=== PATIENT | female | born 1995 | race Caucasian/White ===

== ENCOUNTER → 2016-07-01 | Outpatient (REF) | payer OTHER, MEDICAID ==
[~2016-07-01] MED LIST: IBUP60TA PO; LORT5TAB PO; ORTH1TAB4 PO
== END ==
LOC: M LAB REF 11:55
PROVIDERS: ATTEND Physician Assistant Medical
DX: N39.0 Urinary tract infection, site not specified (principal)

== ENCOUNTER → 2016-07-03 | Outpatient (REF) | payer OTHER, MEDICAID | LOC: M SFHCWAGY 15:19 | PROVIDERS: ATTEND Nurse Practitioner Family | DX: Z11.3 Encounter for screening for infections with a predominantly sexual mode of transmission (principal) ==

== ENCOUNTER → 2017-02-04 | Outpatient (CLI) | payer OTHER ==
--- NOTE | 2017-02-04 16:02 | REP ---
CERVICAL SPINE, SEVEN VIEWS: HISTORY: Cervicalgia. There is no acute fracture or subluxation. The intervertebral discs are normal in height. The neural foramina are patent. IMPRESSION: There is no acute fracture or subluxation. Signed by Raza Benitez MD 02/04/2017 04:02 P
== END ==
LOC: M WUC 12:23
PROVIDERS: ATTEND Physician Assistant
DX: M54.2 Cervicalgia (principal)

== ENCOUNTER → 2017-03-25 | Outpatient (CLI) | payer OTHER, MEDICAID ==
[2017-03-25 19:43] LABS: ALBUMIN 4.5 GM/DL (3.2-5.2); ALKALINE PHOSPHATASE 43 U/L (45-117); ALT/SGPT 17 U/L (12-78); ANION GAP 8 MEQ/L (8-16); AST/SGOT 7 U/L (7-37); BILIRUBIN,TOTAL 0.4 MG/DL (0.2-1.0); BLOOD UREA NITROGEN 15 MG/DL (7-18); CALCIUM LEVEL 9.4 MG/DL (8.5-10.1); CARBON DIOXIDE LEVEL 26 MEQ/L (21-32); CHLORIDE LEVEL 108 MEQ/L (98-107); CREATININE FOR GFR 0.84 MG/DL (0.55-1.02); FREE T4 0.93 NG/DL (0.76-1.46); GLOMERULAR FILTRATION RATE > 60.0 (>60); GLUCOSE, FASTING 94 MG/DL (70-105); PERCENT SATURATION 22.3 % (13.2-45.0); POTASSIUM SERUM 4.2 MEQ/L (3.5-5.1); SODIUM LEVEL 142 MEQ/L (136-145); TOTAL IRON BINDING CAPACITY 323 UG/DL (250-450); TOTAL PROTEIN 7.5 GM/DL (6.4-8.2)
[2017-03-25 19:49] LABS: BASO # 0.1 10^3/uL (0.0-0.2); BASO % 0.6 % (0.0-1.0); EOS # 0.3 10^3/uL (0.0-0.50); EOS % 3.8 % (0.0-3.0); IMMATURE GRANULOCYTE % 0.1 % (0-0); LYMPH # 2.5 10^3/uL (1.5-6.5); LYMPH % 31.7 % (24.0-44.0); MEAN CORPUSCULAR HEMOGLOBIN 30.4 pg (27.0-33.0); MEAN CORPUSCULAR VOLUME 91.9 fl (80.0-96.0); MONO # 0.6 10^3/uL (0.0-0.8); MONO % 7.7 % (0.0-5.0); NEUTROPHILS # 4.4 10^3/uL (1.8-7.7); NEUTROPHILS % 56.1 % (36.0-66.0); PLATELET COUNT, AUTOMATED 317 10^3/uL (150-450); RED CELL DISTRIBUTION WIDTH 12.6 % (11.5-14.5); WHITE BLOOD COUNT 7.9 10^3/uL (4.0-10.0)
[2017-03-29 00:06] LABS: VITAMIN D 1,25 DIHYDROXY 36.5 pg/mL (19.9-79.3)
== END ==
LOC: M WUC 13:15
PROVIDERS: ATTEND Physician Assistant
DX: M79.1 Myalgia (principal); R31.9 Hematuria, unspecified

== ENCOUNTER → 2017-06-11 | Outpatient (CLI) | payer BC, OTHER, MEDICAID | LOC: M WHC 14:09 | DX: N64.4 Mastodynia (principal) | CPT/HCPCS: 76642 ==

== ENCOUNTER → 2017-07-09 | Outpatient (REF) | payer OTHER | LOC: M LAB REF 12:29 | DX: J02.9 Acute pharyngitis, unspecified (principal) ==

== ENCOUNTER → 2017-08-11 | Outpatient (REF) | payer OTHER, MEDICAID | LOC: M SFHCWAGY 10:16 | DX: Z12.4 Encounter for screening for malignant neoplasm of cervix (principal) | CPT/HCPCS: G0123 ==

== ENCOUNTER → 2018-01-02 | Outpatient (CLI) | payer OTHER, MEDICAID ==
[2018-01-02 19:15] LABS: BASO # 0.1 10^3/uL (0.0-0.2); BASO % 0.8 % (0.0-1.0); EOS # 0.4 10^3/uL (0.0-0.50); IMMATURE GRANULOCYTE % 0.2 % (0-3.0); LYMPH # 3.1 10^3/uL (1.5-6.5); LYMPH % 37.1 % (24.0-44.0); MEAN CORPUSCULAR HEMOGLOBIN 30.3 pg (27.0-33.0); MEAN CORPUSCULAR HGB CONC 34.1 g/dl (32.0-36.5); MEAN CORPUSCULAR VOLUME 88.7 fl (80.0-96.0); MONO # 0.6 10^3/uL (0.0-0.8); MONO % 6.9 % (0.0-5.0); NEUTROPHILS # 4.2 10^3/uL (1.8-7.7); PLATELET COUNT, AUTOMATED 295 10^3/uL (150-450); RED BLOOD COUNT 4.62 10^6/uL (4.00-5.40); RED CELL DISTRIBUTION WIDTH 12.4 % (11.5-14.5); WHITE BLOOD COUNT 8.4 10^3/uL (4.0-10.0)
[2018-01-02 19:30] LABS: ALBUMIN 4.1 GM/DL (3.2-5.2); ALBUMIN/GLOBULIN RATIO 1.28 (1.00-1.93); ALKALINE PHOSPHATASE 48 U/L (45-117); ALT/SGPT 18 U/L (12-78); AMYLASE 72 U/L (25-115); ANION GAP 7 MEQ/L (8-16); AST/SGOT 11 U/L (7-37); BILIRUBIN,TOTAL 0.3 MG/DL (0.2-1.0); BLOOD UREA NITROGEN 15 MG/DL (7-18); CALCIUM LEVEL 8.8 MG/DL (8.5-10.1); CARBON DIOXIDE LEVEL 27 MEQ/L (21-32); CHLORIDE LEVEL 108 MEQ/L (98-107); CREATININE FOR GFR 1.12 MG/DL (0.55-1.30); GLOMERULAR FILTRATION RATE > 60.0 (>60); GLUCOSE, FASTING 92 MG/DL (70-100); LIPASE 275 U/L (73-393); POTASSIUM SERUM 3.8 MEQ/L (3.5-5.1); SODIUM LEVEL 142 MEQ/L (136-145); TOTAL PROTEIN 7.3 GM/DL (6.4-8.2)
== END ==
LOC: M ADAMS 17:02
DX: R10.9 Unspecified abdominal pain (principal)
CPT/HCPCS: 82150

== ENCOUNTER → 2018-02-18 | Outpatient (REF) | payer OTHER ==
[2018-02-18 18:56] LABS: FREE T4 0.93 NG/DL (0.76-1.46)
== END ==
LOC: M SFHCWAGY 15:58
DX: R23.2 Flushing (principal); F41.9 Anxiety disorder, unspecified
CPT/HCPCS: 84443

== ENCOUNTER → 2018-03-03 | Outpatient (CLI) | payer BC, OTHER | LOC: M WUC 17:40 | DX: M25.512 Pain in left shoulder (principal) | CPT/HCPCS: 73030 ==

== ENCOUNTER → 2018-03-03 | Outpatient (REF) | payer OTHER | LOC: M LAB REF 19:25 | DX: R10.9 Unspecified abdominal pain (principal) ==

== ENCOUNTER → 2018-05-15 | Outpatient (REF) | payer OTHER ==
[~2018-05-15] MED LIST changes: +ORTH1TAB10 PO; -ORTH1TAB4 PO
[2018-05-15 12:18] LABS: BASO # 0.1 10^3/uL (0.0-0.2); BASO % 0.8 % (0.0-1.0); EOS # 0.2 10^3/uL (0.0-0.50); EOS % 3.9 % (0.0-3.0); HEMATOCRIT 44.7 % (36.0-47.0); HEMOGLOBIN 14.9 g/dl (12.0-15.5); LYMPH % 32.5 % (24.0-44.0); MEAN CORPUSCULAR HEMOGLOBIN 30.5 pg (27.0-33.0); MEAN CORPUSCULAR HGB CONC 33.3 g/dl (32.0-36.5); MEAN CORPUSCULAR VOLUME 91.4 fl (80.0-96.0); MONO # 0.5 10^3/uL (0.0-0.8); MONO % 7.9 % (0.0-5.0); NEUTROPHILS # 3.4 10^3/uL (1.8-7.7); NEUTROPHILS % 54.4 % (36.0-66.0); PLATELET COUNT, AUTOMATED 284 10^3/uL (150-450); RED BLOOD COUNT 4.89 10^6/uL (4.00-5.40); WHITE BLOOD COUNT 6.2 10^3/uL (4.0-10.0)
[2018-05-15 12:28] LABS: ALT/SGPT 16 U/L (12-78); AMYLASE 64 U/L (25-115); BILIRUBIN,TOTAL 0.6 MG/DL (0.2-1.0); BLOOD UREA NITROGEN 13 MG/DL (7-18); CALCIUM LEVEL 9.2 MG/DL (8.5-10.1); CARBON DIOXIDE LEVEL 27 MEQ/L (21-32); CHLORIDE LEVEL 105 MEQ/L (98-107); CHOLESTEROL LEVEL 136 MG/DL (<200); CHOLESTEROL RISK RATIO 3.022 (<5); GLOMERULAR FILTRATION RATE > 60.0 (>60); GLUCOSE, FASTING 87 MG/DL (70-100); HDL CHOLESTEROL 45 MG/DL (>40); LDL CHOLESTEROL 78 MG/DL (<100); LIPASE 241 U/L (73-393); NON-HDL-C 91 MG/DL; POTASSIUM SERUM 4.3 MEQ/L (3.5-5.1); SODIUM LEVEL 141 MEQ/L (136-145); TOTAL PROTEIN 7.2 GM/DL (6.4-8.2); TRIGLYCERIDES LEVEL 66 MG/DL (<150)
== END ==
LOC: M SFHCPLAZ 07:33
PROVIDERS: ATTEND Physician Assistant Medical
DX: Z13.220 Encounter for screening for lipoid disorders (principal); R10.31 Right lower quadrant pain

== ENCOUNTER → 2018-05-21 | Outpatient (CLI) | payer BC ==
--- NOTE | 2018-05-22 05:08 | REP ---
Clinical: Right-sided abdominal pain. Technique: Real time graham scale ultrasound examination using curved array transducer. Findings: Liver and pancreas are normal in contour, size, echogenicity without focal hepatic or pancreatic lesions identified. The gallbladder is normal and without gallstones, wall thickening, or pericholecystic fluid. No biliary ductal dilatation is appreciated and the common bile duct measures 2.5 mm diameter. Right kidney is normal in reniform shape without hydronephrosis and measures 10.8 x 4.7 x 3.5 cm. Impression: Normal abdominal ultrasound
== END ==
LOC: M WHC 08:39
PROVIDERS: ATTEND Physician Assistant Medical
DX: R10.31 Right lower quadrant pain (principal)

== ENCOUNTER 2018-08-20 15:34 | Outpatient (RCR) | payer BC, OTHER ==
[~2018-08-20 15:34] MED LIST changes: +IBUP600T42 PO; -IBUP60TA PO
== END 2018-09-08 ==
LOC: M PT 15:34
PROVIDERS: ATTEND Orthopaedic Surgery
DX: M25.561 Pain in right knee (principal)

== ENCOUNTER 2019-02-06 16:11 | Emergency (ER) | payer BC, OTHER ==
[~2019-02-06] VITALS: Ht 160 cm; Wt 63.6 kg
[2019-02-06 17:26] LABS: BASO # 0.1 10^3/uL (0.0-0.2); BASO % 0.9 % (0.0-1.0); EOS # 0.4 10^3/uL (0.0-0.5); EOS % 6.2 % (0.0-3.0); HEMATOCRIT 41.3 % (36.0-47.0); HEMOGLOBIN 13.8 g/dl (12.0-15.5); LYMPH # 2.2 10^3/uL (1.5-5.0); LYMPH % 32.6 % (24.0-44.0); MEAN CORPUSCULAR HEMOGLOBIN 31.3 pg (27.0-33.0); MEAN CORPUSCULAR HGB CONC 33.4 g/dl (32.0-36.5); MEAN CORPUSCULAR VOLUME 93.7 fl (80.0-96.0); MONO # 0.7 10^3/uL (0.0-0.8); MONO % 9.7 % (0.0-5.0); NEUTROPHILS # 3.5 10^3/uL (1.5-8.5); NEUTROPHILS % 50.5 % (36.0-66.0); PLATELET COUNT, AUTOMATED 265 10^3/uL (150-450); RED BLOOD COUNT 4.41 10^6/uL (4.00-5.40); WHITE BLOOD COUNT 6.8 10^3/uL (4.0-10.0)
[2019-02-06 17:48] LABS: ERYTHROCYTE SEDIMENTATION RATE 4 mm/hr (0-20)
[2019-02-06 17:50] LABS: BLOOD UREA NITROGEN 13 MG/DL (7-18); C REACTIVE PROTEIN QUANTITATIV < 0.30 MG/DL (0.00-0.30); CALCIUM LEVEL 8.4 MG/DL (8.5-10.1); CARBON DIOXIDE LEVEL 30 MEQ/L (21-32); CHLORIDE LEVEL 109 MEQ/L (98-107); CREATININE FOR GFR 0.69 MG/DL (0.55-1.30); GLOMERULAR FILTRATION RATE > 60.0 (>60); GLUCOSE, FASTING 88 MG/DL (70-100); POTASSIUM SERUM 4.5 MEQ/L (3.5-5.1); SODIUM LEVEL 141 MEQ/L (136-145)
[2019-02-06] MEDS ORDERED: ISOVUE-370 76% 100ML VIAL (Q9967) As Ordered ONE (18:28)
[2019-02-06] MEDS ORDERED: NS 1,000 ML IV ONE (18:30)
--- NOTE | 2019-02-06 19:38 | ECGEPIP ---
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 Order Number: [id number] Reading MD: Sybil Altamirano Measurements Intervals [place] Rate: 76 P: 51 MN: 146 QRS: 21 QRSD: 103 T: 55 QT: 378 QTc: 425 Interpretive Statements SINUS RHYTHM NO PRIOR ECG FOR COMPARISON Electronically Signed on 02-06-2019 19:37:58 EDT by Sybil Altamirano
[2019-02-06 20:37] VITALS: BP 110/65
[2019-02-06] MEDS ORDERED: PEPC1TAB5 PO (21:06)
[2019-02-06] MEDS ORDERED: ROBA750T4 PO (21:06)
[2019-02-06] MEDS ORDERED: FAMOTIDINE 20 MG TAB PO ONE (21:15)
[2019-02-06] MEDS ORDERED: METHOCARBAMOL 500 MG TAB PO ONE (21:15)
--- NOTE | 2019-02-07 08:43 | REP ---
CHEST PA AND LATERAL: 02/06/2019. Clinical history: Dyspnea. Findings: Two-view show the lung gaston well inflated. There is no pleural effusion, lateral pleural thickening, apical scarring or pneumothorax. The heart, mediastinal and hilar contours are normal. Aorta and airway intact. Bony thorax shows no focal lesion. Impression: 1. No acute cardiopulmonary disease. Electronically Signed by Aakash Guzmán MD 02/07/2019 10:42 A
--- NOTE | 2019-02-08 08:05 | REPVR ---
PROCEDURE INFORMATION: Exam: CT Angiography Chest With Contrast Exam date and time: 02/06/2019 6:35 PM Clinical history: 23 years old, female; Shortness of breath; Left-sided chest pain; Additional info: Chest pain, left with SOB TECHNIQUE: Imaging protocol: Computed tomographic angiography of the chest with intravenous contrast. 3D rendering: MIP reconstructed images were created and reviewed. Radiation optimization: All CT scans at this facility use at least one of these dose optimization techniques: automated exposure control; mA and/or kV adjustment per patient size (includes targeted exams where dose is matched to clinical indication); or iterative reconstruction. Contrast material: ISOVUE 370; Contrast volume: 75 ml; Contrast route: IV; COMPARISON: CR Chest, 2 view PA, Lat 02/06/2019 5:43 PM FINDINGS: Pulmonary arteries: No filling defects in the pulmonary arteries to suggest pulmonary emboli. Aorta: Unremarkable. No aortic aneurysm. No aortic dissection. Other arteries: Left vertebral artery arises from the aortic arch, a normal variant. Lungs: Unremarkable. No consolidation. No masses. Pleural space: Unremarkable. No pneumothorax. No pleural effusion. Heart: Unremarkable. No cardiomegaly. No pericardial effusion. Liver: 1 cm liver cyst. Lymph nodes: Unremarkable. No enlarged lymph nodes. Bones/joints: Unremarkable. No acute fracture. Soft tissues: Unremarkable. IMPRESSION: No filling defects in the pulmonary arteries to suggest pulmonary emboli. Electronically signed by: Jacobo Gutiérrez On 02/06/2019 19:28:46 PM
== END 2019-02-06 21:20 | disposition home or self-care (01) ==
LOC: M ED 16:11
DX: R07.89 Other chest pain (principal); M62.838 Other muscle spasm
CPT/HCPCS: 71046; 71275; 80048; 84702; 85025; 85379; 85652; 86140; 93005; 96360; 99284; Q9967

== ENCOUNTER → 2019-03-29 | Outpatient (CLI) | payer BC, OTHER ==
[~2019-03-29] MED LIST changes: +PEPC1TAB5 PO; +ROBA750T4 PO
[2019-03-29 13:59] LABS: BASO # 0.1 10^3/uL (0.0-0.2); BASO % 0.6 % (0.0-1.0); EOS # 0.2 10^3/uL (0.0-0.5); EOS % 2.4 % (0.0-3.0); HEMATOCRIT 41.8 % (36.0-47.0); HEMOGLOBIN 13.8 g/dl (12.0-15.5); LYMPH # 1.6 10^3/uL (1.5-5.0); LYMPH % 19.3 % (24.0-44.0); MEAN CORPUSCULAR HEMOGLOBIN 30.3 pg (27.0-33.0); MEAN CORPUSCULAR VOLUME 91.7 fl (80.0-96.0); MONO # 0.8 10^3/uL (0.0-0.8); MONO % 9.2 % (0.0-5.0); NEUTROPHILS # 5.6 10^3/uL (1.5-8.5); NEUTROPHILS % 68.3 % (36.0-66.0); PLATELET COUNT, AUTOMATED 280 10^3/uL (150-450); RED BLOOD COUNT 4.56 10^6/uL (4.00-5.40); WHITE BLOOD COUNT 8.3 10^3/uL (4.0-10.0)
[2019-03-29 14:55] LABS: HIV 1&2 SCREEN CENTAUR NEGATIVE (NEGATIVE); RUBELLA IgG QUALITATIVE IMMUNE (IMMUNE)
[2019-03-29 15:54] LABS: CHLAMYDIA DNA AMPLIFICATION NEGATIVE (NEGATIVE); GC DNA AMPLIFICATION NEGATIVE (NEGATIVE)
== END ==
LOC: M SMT 10:17
PROVIDERS: ATTEND Advanced Practice Midwife
DX: Z34.81 Encounter for supervision of other normal pregnancy, first trimester (principal)

== ENCOUNTER 2019-05-05 11:24 | Emergency (ER) | payer BC, OTHER ==
[~2019-05-05] VITALS: Ht 162.6 cm; Wt 62.9 kg
[2019-05-05] MEDS ORDERED: ACETAMINOPHEN TAB 650MG DOSE (2X325MG) PO ONE (12:30)
[2019-05-05 12:55] LABS: AMORPHOUS SEDIMENT SMALL (NEGATIVE); APPEARANCE, URINE CLEAR (CLEAR); BACTERIA, URINE AUTO NEGATIVE (NEGATIVE); BILIRUBIN, URINE AUTO NEGATIVE (NEGATIVE); BLOOD, URINE BLOOD NEGATIVE (NEGATIVE); COLOR, URINE YELLOW (YELLOW); GLUCOSE, URINE (UA) AUTO NEGATIVE (NEGATIVE); KETONE, URINE AUTO 1+ mg/dL (NEGATIVE); LEUKOCYTE ESTERASE, URINE AUTO NEGATIVE (NEGATIVE); MUCUS, URINE SMALL (NEGATIVE); NITRITE, URINE AUTO NEGATIVE (NEGATIVE); PROTEIN, URINE AUTO NEGATIVE (NEGATIVE); RBC, URINE AUTO 0 /HPF (0-3); SPECIFIC GRAVITY URINE AUTO 1.027 (1.002-1.035); SQUAMOUS EPITHELIAL CELL UR AU 2 /HPF (0-6); UROBILINOGEN, URINE AUTO 0.2 mg/dL (0.0-2.0); WBC, URINE AUTO 0 /HPF (0-3)
--- NOTE | 2019-05-05 13:15 | REP ---
Clinical: with right lower quadrant pain Comparison: None . Findings: Examination demonstrates a single live intrauterine in breech presentation. motion is identified by technologist. Placenta is noted posterior and grade zero without evidence for placenta previa or abruption. Amniotic fluid volume is normal. Cervix measures 3.1 cm in length and appears closed. No evidence for nuchal cord. Gestational age by LMP 14 weeks 6 days with DEBBIE 10/28/2019 . Gestational age by current measurements 14 weeks 6 days with DEBBIE 10/28/2019 . FHR equals 150 beats per minute. Estimated weight 113 grams ( 47th percentile). Anatomical assessment demonstrates normal structures including cranium, choroid plexus, cavum, cerebellum/posterior fossa, facial features, diaphragm, stomach, kidneys/bladder, spine, and extremities. Impression: Single live intrauterine in breech presentation. No gross abnormalities are identified. Complete anatomical assessment should be performed at 19-20 weeks. Electronically Signed by Los Johnson MD 05/05/2019 01:07 P
[2019-05-05 13:33] LABS: BASO % 0.4 % (0.0-1.0); EOS # 0.2 10^3/uL (0.0-0.5); EOS % 1.7 % (0.0-3.0); HEMOGLOBIN 12.9 g/dl (12.0-15.5); LYMPH # 1.7 10^3/uL (1.5-5.0); LYMPH % 16.9 % (24.0-44.0); MEAN CORPUSCULAR HEMOGLOBIN 30.4 pg (27.0-33.0); MEAN CORPUSCULAR HGB CONC 33.1 g/dl (32.0-36.5); MEAN CORPUSCULAR VOLUME 91.8 fl (80.0-96.0); MONO # 0.6 10^3/uL (0.0-0.8); MONO % 5.7 % (0.0-5.0); NEUTROPHILS # 7.3 10^3/uL (1.5-8.5); NEUTROPHILS % 74.9 % (36.0-66.0); PLATELET COUNT, AUTOMATED 234 10^3/uL (150-450); RED BLOOD COUNT 4.25 10^6/uL (4.00-5.40); WHITE BLOOD COUNT 9.8 10^3/uL (4.0-10.0)
[2019-05-05 13:40] LABS: BLOOD UREA NITROGEN 9 MG/DL (7-18); C REACTIVE PROTEIN QUANTITATIV 0.38 MG/DL (0.00-0.30); CALCIUM LEVEL 8.9 MG/DL (8.5-10.1); CARBON DIOXIDE LEVEL 24 MEQ/L (21-32); CHLORIDE LEVEL 104 MEQ/L (98-107); CREATININE FOR GFR 0.54 MG/DL (0.55-1.30); GLOMERULAR FILTRATION RATE > 60.0 (>60); GLUCOSE, FASTING 74 MG/DL (70-100); HCG, SERUM QUANTITATIVE 26232 MIU/ML; POTASSIUM SERUM 4.8 MEQ/L (3.5-5.1); SODIUM LEVEL 136 MEQ/L (136-145)
[2019-05-05 14:44] VITALS: BP 114/69
[2019-05-05 15:06] LABS: CHLAMYDIA DNA AMPLIFICATION NEGATIVE (NEGATIVE); GC DNA AMPLIFICATION NEGATIVE (NEGATIVE)
== END 2019-05-05 15:11 | disposition home or self-care (01) ==
LOC: M ED 11:24
DX: O26.892 Other specified pregnancy related conditions, second trimester (principal); Z3A.14 14 weeks gestation of pregnancy

== ENCOUNTER → 2019-06-07 | Outpatient (CLI) | payer BC, OTHER ==
--- NOTE | 2019-06-08 01:37 | REP ---
Clinical: Anatomical evaluation. Comparison: 05/05/2019 . Findings: Examination demonstrates a single live intrauterine in transverse (head to maternal left) presentation. motion is identified by technologist. Placenta is noted posterior and grade zero without evidence for placenta previa or abruption. Amniotic fluid volume is normal. Cervix measures 3.1 cm in length and appears closed. No evidence for nuchal cord. Gestational age by LMP 19 weeks 4 days with DEBBIE 10/28/2019 . Gestational age by current measurements 19 weeks 0 days with DEBBIE 11/01/2019 . FHR equals 154 beats per minute. BPD 4.6 cm 19 weeks 6 days HC 16.5 cm 19 weeks 2 days AC 13.5 cm 19 weeks 0 days FL 2.8 cm 18 weeks 4 days HL 2.7 cm 18 weeks 4 days HC/AC ratio 1.22 Estimated weight 261 grams ( 21st percentile). Anatomical assessment demonstrates normal structures including cranium, choroid plexus, cavum, cerebellum/posterior fossa, facial features, lungs, four-chamber heart/ventricular outflow tracts, diaphragm, stomach, cord insertion/three-vessel cord, kidneys/bladder, spine, and extremities. Impression: 1. Single live intrauterine in transverse lie demonstrating appropriate interval growth. 2. Anatomical assessment is complete and normal.
== END ==
LOC: M WHC 07:57
PROVIDERS: ATTEND Advanced Practice Midwife
DX: Z34.02 Encounter for supervision of normal first pregnancy, second trimester (principal); Z3A.19 19 weeks gestation of pregnancy

== ENCOUNTER → 2019-07-23 | Outpatient (REF) | payer OTHER ==
[2019-07-23 13:21] LABS: HEMATOCRIT 35.1 % (36.0-47.0); HEMOGLOBIN 11.9 g/dl (12.0-15.5); MEAN CORPUSCULAR HEMOGLOBIN 32.5 pg (27.0-33.0); MEAN CORPUSCULAR HGB CONC 33.9 g/dl (32.0-36.5); MEAN CORPUSCULAR VOLUME 95.9 fl (80.0-96.0); PLATELET COUNT, AUTOMATED 234 10^3/uL (150-450); RED BLOOD COUNT 3.66 10^6/uL (4.00-5.40)
== END ==
LOC: M PLALAB 10:45
PROVIDERS: ATTEND Advanced Practice Midwife
DX: Z34.82 Encounter for supervision of other normal pregnancy, second trimester (principal); Z3A.00 Weeks of gestation of pregnancy not specified

== ENCOUNTER → 2019-10-01 | Outpatient (REF) | payer OTHER | LOC: M SFHCWAGY 10:07 | PROVIDERS: ATTEND Advanced Practice Midwife | DX: Z34.03 Encounter for supervision of normal first pregnancy, third trimester (principal) ==

== ENCOUNTER 2019-10-25 06:38 | Inpatient (IN) | payer BC, OTHER ==
[2019-10-25] VITALS (57 sets, daily range): BP systolic 84–137; BP diastolic 50–89
[~2019-10-25] VITALS: Ht 160 cm; Wt 75.3 kg
[2019-10-25] MEDS ORDERED: ZOFR4TAB16 PO (07:12)
[2019-10-25] MEDS ORDERED: LACTATED RINGER'S 1000 ML IV STA (07:14)
[2019-10-25] MEDS ORDERED: LR 1,000 ML IV SCH ×2 (07:14→10:16)
[2019-10-25 07:52] LABS: HEMATOCRIT 38.5 % (36.0-47.0); HEMOGLOBIN 12.8 g/dl (12.0-15.5); MEAN CORPUSCULAR HEMOGLOBIN 31.1 pg (27.0-33.0); MEAN CORPUSCULAR HGB CONC 33.2 g/dl (32.0-36.5); MEAN CORPUSCULAR VOLUME 93.7 fl (80.0-96.0); PLATELET COUNT, AUTOMATED 225 10^3/uL (150-450); RED BLOOD COUNT 4.11 10^6/uL (4.00-5.40); WHITE BLOOD COUNT 14.5 10^3/uL (4.0-10.0)
[2019-10-25] MEDS ORDERED: FENTANYL 2MCG/ML ROPIVACAINE 0.2% IN 0.9% NACL 100ML IVBAG As Ordered ONE (09:06)
--- NOTE | 2019-10-25 09:46 | HPEPDOC ---
Obstetrical History & Physical General Date of Admission Oct 25, 2019 at 07:18 Primary Care Physician: WAGNER SALAS CNM History of Present Illness Patient is a 24-year-old female who is a at 39.4 weeks gestation with an DEBBIE of 10/28/19 based off of her LMP and consistent with her first trimester ult rasound. Her has been uncomplicated. She presented to L&D in active labor. She reports contractions and active movement. She denies vaginal bleeding or leaking of fluid. 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 Social History Marital Status: Single Family situation: Spouse/partner home Psychosocial History: Anxiety * Smoker: non-smoker Alcohol: Denies Drugs: denies Abuse Violence Screening Have you been hit/kicked/slapp: No Have you been sexually assault: No Allergies Coded Allergies: No Known Allergies (Unverified , 02/06/19) Medications Scheduled PRN Ondansetron HCl (Zofran) 4 Mg Tablet, 4 MG PO PRN PRN for NAUSEA Physical Examination Physical Examination GENERAL: Alert and oriented times three. BREAST: . ABDOMEN: Gravid and non-tender to touch. FETUS: Is vertex (VTX) by sterile vaginal examination (SVE), fetus is vertex (VTX) by Chance. HEART RATE: Regular rate and rhythm. LUNGS: Clear to auscultation (CTA). EXTREMITIES: No edema. No clonus. Deep tendon reflexes (DTRs) + 2. Vital Signs/I&O Vital Signs Date Time Temp Pulse Resp B/P (MAP) Pulse Ox O2 Delivery O2 Flow Rate FiO2 10/25/19 08:47 78 110/71 (84) 10/25/19 07:16 97.2 10/25/19 06:58 16 Laboratory Data 24H LABS Laboratory Tests 2 10/25/19 07:33: Nucleated Red Blood Cells % (auto) 0.0 10/25/19 08:02: Serology Scanned Report Hepatitis B Testing CBC/BMP Laboratory Tests 10/25/19 07:33 Pertinent Laboratoy Data Blood Type: A+ RBC Antibody Screen: Negative HIV: Negative Hepatitis B: Negative Hepatitis C: Negative Rapid Plasma Reagin: Nonreactive Rubella: Immune Chlamydia/Gonorrhea: Negative Group B Streptococcus: Negative Glucose Tolerance Test: 95 Vaginal Examination Dilation: 3 cm Effacement: 100% Station: -2 Presentation: Cephalic presentation Position: Vertex (occiput) Assessment Heart Rate (FHR): 140 Variability: Moderate Accelerations: Positive Decelerations: None Tocometer Contractions: Yes Frequency: other (2-6 minutes) Multi-drug resistant Organism: No history of MDRO Assessment/Plan Assessment IUP at 39.4 weeks gestation Category I FHR tracing Active labor GBS negative Plan Admit to L&D. OOB ad serg. Diet: clears. Group B Streptococcus (GBS) negative. Labs and intravenous (IV) per unit protocol. Anesthesia consult per patient's request. Lactated Ringers (LR): Bolus 800 mL, then at 125 mL/hr. Anticipate cervical change. . C-S as appropriate. WAGNER SALAS CNM Oct 25, 2019 09:46
[2019-10-25] MEDS ORDERED: OXYTOCIN DRIP 30 UNITS in IV 1 EA IV SCH ×2 (10:30→16:16)
[2019-10-25] MEDS ORDERED: EPIDURAL COMMENT XX SCH (10:45)
[2019-10-25] MEDS ORDERED: FENTANYL/ROPIVACAINE/NACL BAG 100 ML EPIDURAL SCH (10:45)
[2019-10-25] MEDS ORDERED: EPIDURAL/PCA KEYS XX PRN (10:45)
[2019-10-25] MEDS ORDERED: diphenhydrAMINE 50MG/ML VIAL (J1200) IV PRN (10:45)
[2019-10-25] MEDS ORDERED: NALOXONE INJ 0.4MG/1ML VIAL (J2310 PER 1MG) IV PRN (10:45)
[2019-10-25] MEDS ORDERED: REFRIGERATOR IV KEYS XX PRN (10:45)
[2019-10-25] MEDS ORDERED: ePHEDrine SULFATE 25 MG/5 ML(5MG/ML) SYRINGE IV PRN (10:45)
[2019-10-25] MEDS ORDERED: ONDANSETRON 4MG/2ML VIAL IV PRN (10:45)
--- NOTE | 2019-10-25 13:03 | IPNPDOC ---
Obstetrical Progress Note Date of Service Oct 25, 2019 Subjective Reports pain with contractions and pressure. Objective Vital Signs Date Time Temp Pulse Resp B/P (MAP) Pulse Ox O2 Delivery O2 Flow Rate FiO2 10/25/19 12:41 102 101/55 (70) 10/25/19 11:06 96.7 16 Room Air Assessment Heart Rate (FHR): 150 Variability: Moderate Accelerations: Positive Decelerations: Early Heart Rate Tracing: Category I Tocometer Contractions: Yes Frequency: regular Sterile Vaginal Examination Dilation: 9 cm Effacement (%): 100% Station: 0 Postion/Presentation: Cephalic presentation Assessment and Plan Anticipate: Vaginal Delivery Additional Comments IV Pitocin is at 8 mu/min. Dr. Jordan was in to bolus epidural. WAGNER SALAS CNM Oct 25, 2019 13:03
[2019-10-25] MEDS ORDERED: DOCUSATE SODIUM 100 MG CAP PO PRN (16:30)
[2019-10-25] MEDS ORDERED: MEASLES,MUMPS,RUBELLA VACCINE INJ (MMR-II) (90707) SC SCH (16:30)
[2019-10-25] MEDS ORDERED: METHYLERGONOVINE MALEATE 0.2 MG TAB PO PRN (16:30)
[2019-10-25] MEDS ORDERED: ANUSOL HC CREAM 30GM TOP PRN (16:30)
[2019-10-25] MEDS ORDERED: DIBUCAINE 1% OINTMENT 30GM TOP PRN (16:30)
[2019-10-25] MEDS ORDERED: ACETAMINOPHEN TAB 650MG DOSE (2X325MG) PO PRN (16:30)
[2019-10-25] MEDS ORDERED: RHOGAM 300 MCG (1500 IU) INJ (J2790) IM SCH (16:30)
--- NOTE | 2019-10-25 16:39 | DNPDOC ---
[facility] Delivery Note Delivery Note DATE OF DELIVERY: 10/25/19 at 1446 PREDELIVERY DIAGNOSIS: 39-4/7 weeks' gestation and labor. POST DELIVERY DIAGNOSIS: Delivered. PROCEDURE: Spontaneous vaginal delivery. 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 ESTIMATED BLOOD LOSS: 300 mL. FINDINGS: 6 pounds 15 ounces; 3140 grams; female , Score 8/9. DELIVERY SUMMARY: Patient is a 24-year-old female who is now a at 39.4 weeks gestation who presented to L&D in active labor. She received IV Pitocin after her epidural. The patient progressed to fully dilated at 1422. She pushed to a living female in the NANI position with restitution to LOT. The anterior shoulder delivered with ease and the corpus immediately followed at 1446. The baby was placed on the maternal abdomen active and crying. The cord was clamped x2 after pulsation ceased and cut by the FOB. A 3-vessel cord was noted. The placenta delivered spontaneously with trailing membranes that were slowly removed with ring forceps at the perineum. Uterine hemostasis was achieved via rapid infusion of IV Pitocin and fundal massage. The perineum, cervix and vagina was inspected and found to have a very small first degree perineal laceration that was repaired with a figure 8 with [address]-1 and bilateral labial lacerations. The left labial laceration was repaired. Mom plans on naming her Melony. Mom plans to formula feed. Both mom and baby are in stable condition. All counts of instruments and sponges are correct. WAGNER HOOVER CNM Oct 25, 2019 16:39
[2019-10-25] MEDS: IBUPROFEN 600MG TAB PO PRN (18:18)
[2019-10-25] MEDS: ACETAMINOPHEN 500 MG TAB PO PRN (21:29)
[2019-10-26] MEDS: IBUPROFEN 800 MG TAB PO PRN ×2 (02:57→11:53)
[2019-10-26 05:37] VITALS: BP 109/67
[2019-10-26] MEDS: PRENATAL VITAMINS CHEWABLE TABLET PO SCH (07:37)
[2019-10-26] MEDS: ACETAMINOPHEN 500 MG TAB PO PRN ×3 (07:38→23:41)
--- NOTE | 2019-10-26 09:34 | IPNPDOC ---
Progress Note Date of Service: Oct 26, 2019 Day#: 1 Progress Note SUBJECT: Patient is a 24-year-old female who is a who had an uncomplic ated vaginal delivery. She has been ambulating, voiding spontaneously without issue and tolerating regular diet. She is formula feeding. She does report tailbone pain. Reviewed comfort measures. OBJECTIVE: VITAL SIGNS: Within normal limits, afebrile. Alert and oriented times three. Breath sounds clear to auscultation. Heart rate: Regular rate and rhythm, no murmurs, rubs or gallops. Abdomen: Fundus firm at U-1. Soft, NTTP. Minimal lochia. ASSESSMENT: Day 1 PLAN: 1. Continue supportive nursing care. 2. Anticipate discharge to home tomorrow. VS, I&O, 24H, Fishbone Vital Signs/I&O Vital Signs Date Time Temp Pulse Resp B/P (MAP) Pulse Ox O2 Delivery O2 Flow Rate FiO2 10/26/19 05:37 98.5 97 18 109/67 (81) 97 Room Air I&O- Last 24 Hours up to 6 AM 10/26/19 06:00 Intake Total 100 ml Output Total 750 ml Balance -650 ml WAGNER SALAS CNM Oct 26, 2019 09:34
[2019-10-26 18:37] VITALS: BP 114/72
[2019-10-26] MEDS: IBUPROFEN 600MG TAB PO PRN (18:51)
[2019-10-27 05:53] VITALS: BP 115/66
[2019-10-27] MEDS: PRENATAL VITAMINS CHEWABLE TABLET PO SCH (09:20)
[2019-10-27] MEDS: ACETAMINOPHEN 500 MG TAB PO PRN (09:20)
== END 2019-10-27 12:50 | disposition home or self-care (01) | DRG 560 ==
LOC: M LDO 06:38 → M LDI 07:18 → M OBS 16:47
PROVIDERS: ADMIT Obstetrics & Gynecology; ATTEND Obstetrics & Gynecology
PROC: 10E0XZZ Delivery of Products of Conception, External Approach (ICD-10-PCS; principal; 2019-10-25)
PROC: 0HQ9XZZ Repair Perineum Skin, External Approach (ICD-10-PCS; 2019-10-25)
DX: O70.0 First degree perineal laceration during delivery (principal); Z37.0 Single live birth; Z3A.39 39 weeks gestation of pregnancy

== ENCOUNTER → 2020-01-12 | Outpatient (CLI) | payer BC, OTHER ==
[~2020-01-12] MED LIST changes: +AUGM500T34 PO; +COLA100C5 PO; +DEPO150I IM; +HYDR-3363 PO; +IBUP-1022 PO; +IBUP-1114 PO; +KETO10TAB PO; +MAGN296S16; +MIRA3350 PO; +MULTCAP PO; +OMEP40CA97 PO; +ONDA4TAB6 PO; +ZOFR4TAB16 PO
[2020-01-12 15:04] LABS: HCG, SERUM QUALITATIVE NEGATIVE (NEGATIVE)
== END ==
LOC: M PLALAB 09:33
PROVIDERS: ATTEND Nurse Practitioner Family
DX: R11.0 Nausea (principal)

== ENCOUNTER 2020-01-28 08:36 | Emergency (ER) | payer BC, OTHER ==
[~2020-01-28] VITALS: Ht 160 cm; Wt 72.0 kg
[~2020-01-28 08:36] MED LIST changes: -AUGM500T34 PO; -COLA100C5 PO; -DEPO150I IM; -HYDR-3363 PO; -IBUP-1022 PO; -IBUP-1114 PO; -KETO10TAB PO; -MAGN296S16; -MIRA3350 PO; -MULTCAP PO; -OMEP40CA97 PO; -ONDA4TAB6 PO
[2020-01-28] MEDS ORDERED: HYDR-3363 PO (08:44)
[2020-01-28] MEDS ORDERED: IBUP-1022 PO (08:44)
[2020-01-28] MEDS ORDERED: IBUP-1114 PO (08:44)
[2020-01-28] MEDS ORDERED: ONDANSETRON 4 MG ORAL DISINTEGRATING TAB PO ONE (09:30)
[2020-01-28] MEDS ORDERED: ACETAMINOPHEN 325 MG TAB PO ONE (09:30)
[2020-01-28 09:51] LABS: BASO % 0.7 % (0.0-1.0); EOS # 0.3 10^3/uL (0.0-0.5); EOS % 4.8 % (0.0-3.0); HEMATOCRIT 37.1 % (36.0-47.0); HEMOGLOBIN 12.1 g/dl (12.0-15.5); LYMPH # 1.8 10^3/uL (1.5-5.0); LYMPH % 30.2 % (24.0-44.0); MEAN CORPUSCULAR HEMOGLOBIN 29.7 pg (27.0-33.0); MEAN CORPUSCULAR HGB CONC 32.6 g/dl (32.0-36.5); MEAN CORPUSCULAR VOLUME 90.9 fl (80.0-96.0); MONO # 0.4 10^3/uL (0.0-0.8); MONO % 7.6 % (0.0-5.0); NEUTROPHILS # 3.3 10^3/uL (1.5-8.5); NEUTROPHILS % 56.4 % (36.0-66.0); PLATELET COUNT, AUTOMATED 237 10^3/uL (150-450); RED BLOOD COUNT 4.08 10^6/uL (4.00-5.40); WHITE BLOOD COUNT 5.8 10^3/uL (4.0-10.0)
[2020-01-28 10:25] LABS: ALBUMIN 3.5 GM/DL (3.2-5.2); ALT/SGPT 27 U/L (12-78); BILIRUBIN,DIRECT < 0.1 MG/DL (0.0-0.2); BILIRUBIN,TOTAL 0.2 MG/DL (0.2-1.0); BLOOD UREA NITROGEN 18 MG/DL (7-18); CALCIUM LEVEL 8.5 MG/DL (8.5-10.1); CARBON DIOXIDE LEVEL 22 MEQ/L (21-32); CHLORIDE LEVEL 111 MEQ/L (98-107); CREATININE FOR GFR 0.74 MG/DL (0.55-1.30); GLOMERULAR FILTRATION RATE > 60.0 (>60); GLUCOSE, FASTING 98 MG/DL (70-100); POTASSIUM SERUM 4.2 MEQ/L (3.5-5.1); SODIUM LEVEL 142 MEQ/L (136-145); TOTAL PROTEIN 6.2 GM/DL (6.4-8.2)
--- NOTE | 2020-01-28 10:26 | REPVR ---
PROCEDURE INFORMATION: Exam: US Pelvis Complete, Transabdominal and US Duplex Artery and Vein, Ovaries, Complete Exam date and time: 01/28/2020 10:07 AM Age: 24 years old Clinical indication: Pelvic pain; Additional info: Lower pelvic pain, HX of cysts TECHNIQUE: Imaging protocol: Real-time transabdominal pelvic ultrasound with image documentation. Real-time duplex ultrasound scan of the arterial and venous flow of the ovaries with B-mode, color Doppler flow and spectral waveform analysis. Complete Pelvis, Complete Duplex. COMPARISON: PELVIS NON-OB COMPLETE US 12/23/2014 11:55 AM FINDINGS: Uterus/cervix: The uterus measures 8.0 x 3.9 x 4.4 cm. It is anteverted and homogeneous in echotexture, without demonstrated lesion. The endometrium measures 3.8 mm in thickness. Right adnexa: The right ovary measures 2.1 x 1.4 x 2.0 cm and contains small follicles. There is normal internal arterial and venous flow. Peak systolic velocity 11.7 cm/s, end-diastolic velocity 5.1 cm/s, resistive index 0.57. Left adnexa: The left ovary measures 1.9 x 2.3 x 1.3 cm and appears unremarkable. There is normal internal arterial and venous flow. Peak systolic velocity 11.5 cm/s, end-diastolic velocity 6.8 cm/s, resistive index 0.40. Free fluid: No significant free fluid is demonstrated. Bladder: The urinary bladder measures 7.8 x 3.9 x 5.2 cm and appears unremarkable. IMPRESSION: 1. No demonstrated abnormality of the uterus or ovaries. 2. Normal internal flow to both ovaries without torsion. Electronically signed by: Ladarius Calles On 01/28/2020 10:26:28 AM
[2020-01-28 10:33] LABS: HCG, SERUM QUALITATIVE NEGATIVE (NEGATIVE)
--- NOTE | 2020-01-28 10:56 | REPVR ---
PROCEDURE INFORMATION: Exam: XR Chest, 2 Views Exam date and time: 01/28/2020 10:42 AM Age: 24 years old Clinical indication: Other: Pain under lower left ribs; Additional info: Left rib pain TECHNIQUE: Imaging protocol: XR of the chest Views: 2 views. COMPARISON: [place] - Chest, 2 view PA, Lat 02/06/2019 5:43:05 PM FINDINGS: Lungs: Unremarkable. No consolidation. Pleural space: Unremarkable. No pleural effusion. No pneumothorax. Heart/Mediastinum: Unremarkable. No cardiomegaly. Bones/joints: Unremarkable. IMPRESSION: No evidence for acute pulmonary disease. Electronically signed by: Ladarius Calles On 01/28/2020 10:55:36 AM
[2020-01-28 11:06] VITALS: BP 112/71
[2020-01-28] MEDS ORDERED: ONDA4TAB6 PO (11:29)
[2020-01-28] MEDS ORDERED: KETO10TAB PO (11:29)
[2020-03-23] MEDS ORDERED: DEPO150I IM (07:52)
== END 2020-01-28 11:35 | disposition home or self-care (01) ==
LOC: M ED 08:36
DX: R10.2 Pelvic and perineal pain (principal); R07.89 Other chest pain; R07.82 Intercostal pain; F41.9 Anxiety disorder, unspecified; Z79.899 Other long term (current) drug therapy
CPT/HCPCS: 36415; 71046; 76856; 80048; 80076; 81001; 84703; 85025; 93976; 99284; Q0162

== ENCOUNTER → 2020-02-03 | Outpatient (CLI) | payer BC, OTHER ==
[~2020-02-03] MED LIST changes: +AUGM500T34 PO; +COLA100C5 PO; +DEPO150I IM; +HYDR-3363 PO; +IBUP-1022 PO; +IBUP-1114 PO; +KETO10TAB PO; +MAGN296S16; +MIRA3350 PO; +MULTCAP PO; +OMEP40CA97 PO; +ONDA4TAB6 PO
[2020-02-03 18:18] LABS: ALBUMIN 3.8 GM/DL (3.2-5.2); ALT/SGPT 27 U/L (12-78); BILIRUBIN,TOTAL 0.2 MG/DL (0.2-1.0); BLOOD UREA NITROGEN 27 MG/DL (7-18); CALCIUM LEVEL 8.9 MG/DL (8.5-10.1); CARBON DIOXIDE LEVEL 25 MEQ/L (21-32); CHLORIDE LEVEL 111 MEQ/L (98-107); CREATININE FOR GFR 0.84 MG/DL (0.55-1.30); GLOMERULAR FILTRATION RATE > 60.0 (>60); GLUCOSE, FASTING 78 MG/DL (70-100); LIPASE 232 U/L (73-393); POTASSIUM SERUM 4.7 MEQ/L (3.5-5.1); SODIUM LEVEL 142 MEQ/L (136-145); TOTAL PROTEIN 6.7 GM/DL (6.4-8.2)
--- NOTE | 2020-02-10 17:34 | REPPI ---
ABDOMINAL RADIOGRAPH CLINICAL: Upper abdominal pain. TECHNIQUE: Single supine view of the abdomen and pelvis. FINDINGS: Moderate fecal stasis and possible constipation suggested. No evidence for obstruction or perforation. No organomegaly. Skeletal structures are intact. IMPRESSION: Findings suggest moderate fecal stasis. MTDD
== END ==
LOC: M PLAIMG 15:01 → M PLALAB 15:01
PROVIDERS: ATTEND Nurse Practitioner Family
DX: R10.12 Left upper quadrant pain (principal)

== ENCOUNTER 2020-02-17 11:34 | Emergency (ER) | payer BC, OTHER ==
[~2020-02-17] VITALS: Ht 162.6 cm; Wt 72.0 kg
[~2020-02-17 11:34] MED LIST changes: -AUGM500T34 PO; -COLA100C5 PO; -DEPO150I IM; -MAGN296S16; -MIRA3350 PO; -MULTCAP PO; -OMEP40CA97 PO
[2020-02-17] MEDS ORDERED: MAGN296S16 (11:41)
[2020-02-17] MEDS ORDERED: NS 1,000 ML IV ONE (12:15)
[2020-02-17] MEDS ORDERED: ONDANSETRON 4MG/2ML VIAL IV ONE (12:15)
[2020-02-17 12:35] LABS: BASO # 0.1 10^3/uL (0.0-0.2); BASO % 0.9 % (0.0-1.0); EOS # 0.2 10^3/uL (0.0-0.5); EOS % 4.1 % (0.0-3.0); HEMATOCRIT 39.9 % (36.0-47.0); HEMOGLOBIN 13.1 g/dl (12.0-15.5); LYMPH # 1.7 10^3/uL (1.5-5.0); LYMPH % 28.6 % (24.0-44.0); MEAN CORPUSCULAR HEMOGLOBIN 29.7 pg (27.0-33.0); MEAN CORPUSCULAR HGB CONC 32.8 g/dl (32.0-36.5); MEAN CORPUSCULAR VOLUME 90.5 fl (80.0-96.0); MONO # 0.4 10^3/uL (0.0-0.8); MONO % 6.6 % (0.0-5.0); NEUTROPHILS # 3.5 10^3/uL (1.5-8.5); NEUTROPHILS % 59.5 % (36.0-66.0); PLATELET COUNT, AUTOMATED 284 10^3/uL (150-450); RED BLOOD COUNT 4.41 10^6/uL (4.00-5.40); WHITE BLOOD COUNT 5.9 10^3/uL (4.0-10.0)
[2020-02-17] MEDS ORDERED: ISOVUE-370 76% 100ML VIAL As Ordered ONE (12:45)
[2020-02-17 13:02] LABS: ALBUMIN 3.9 GM/DL (3.2-5.2); ALT/SGPT 29 U/L (12-78); BILIRUBIN,DIRECT < 0.1 MG/DL (0.0-0.2); BILIRUBIN,TOTAL 0.2 MG/DL (0.2-1.0); LIPASE 209 U/L (73-393); TOTAL PROTEIN 7.2 GM/DL (6.4-8.2)
--- NOTE | 2020-02-17 14:01 | REPVR ---
PROCEDURE INFORMATION: Exam: CT Abdomen And Pelvis With Contrast Exam date and time: 02/17/2020 12:51 PM Age: 24 years old Clinical indication: Abdominal pain; Generalized; Additional info: Abd pain with nausea TECHNIQUE: Imaging protocol: Computed tomography of the abdomen and pelvis with intravenous contrast. Radiation optimization: All CT scans at this facility use at least one of these dose optimization techniques: automated exposure control; mA and/or kV adjustment per patient size (includes targeted exams where dose is matched to clinical indication); or iterative reconstruction. Contrast material: ISOVUE 370; Contrast volume: 100 ml; Contrast route: INTRAVENOUS (IV); COMPARISON: CT ABD PELVIS WITH CONTRAST 09/14/2015 8:29 PM FINDINGS: Lungs: There is minimal posterior dependent atelectasis at the lung bases. Liver: There is an 8 mm simple cyst in the right liver. Gallbladder and bile ducts: Gallbladder is collapsed. No biliary ductal dilatation. Pancreas: Normal. No ductal dilation. Spleen: Normal. No splenomegaly. Adrenals: Normal. No mass. Kidneys and ureters: Normal. No hydronephrosis. Stomach and bowel: There is no bowel dilatation to indicate obstruction. Appendix: Appendix is not seen. There are surgical clips adjacent to the cecum likely from prior appendectomy. Intraperitoneal space: Unremarkable. No free air. No significant fluid collection. Vasculature: Unremarkable. No abdominal aortic aneurysm. Lymph nodes: There are small bilateral inguinal lymph nodes Urinary bladder: Unremarkable as visualized. Reproductive: Unremarkable as visualized. Bones/joints: There is a posterior disc bulge at L5-S1 Soft tissues: There is a small noninflamed fat containing umbilical hernia. IMPRESSION: 1. No acute findings to explain the patient's abdominal pain and nausea. 2. 8 mm simple cyst in the right liver. 3. Small noninflamed fat containing umbilical hernia. 4. Presumed appendectomy. Electronically signed by: Arlet Tracy On 02/17/2020 14:01:02 PM
[2020-02-17 14:24] VITALS: BP 113/65
== END 2020-02-17 14:32 | disposition home or self-care (01) ==
LOC: M ED 11:34
DX: R10.9 Unspecified abdominal pain (principal); K76.89 Other specified diseases of liver; K42.9 Umbilical hernia without obstruction or gangrene; Z79.899 Other long term (current) drug therapy
CPT/HCPCS: 74177; 80047; 80076; 81001; 83690; 84702; 85025; 96361; 96374; 99284; J2405; Q9967

== ENCOUNTER → 2020-02-25 | Outpatient (REF) | payer OTHER ==
[~2020-02-25] MED LIST changes: +MAGN296S16
== END ==
LOC: M SFHCPLAZ 11:10
PROVIDERS: ATTEND Physician Assistant Medical
DX: R10.12 Left upper quadrant pain (principal)

== ENCOUNTER → 2020-02-28 | Outpatient (CLI) | payer BC ==
[~2020-02-28] MED LIST changes: +AUGM500T34 PO; +COLA100C5 PO; +MIRA3350 PO; +OMEP40CA97 PO
--- NOTE | 2020-02-28 10:12 | REP ---
INDICATION: Right upper quadrant pain COMPARISON: 05/21/2018. FINDINGS: Multiple ultrasonographic images of the liver show the hepatic parenchymal echo texture to appear unremarkable. There are no focal masses. There is no intrahepatic ductal dilatation. The common bile duct measures approximately 4 mm in its greatest transverse dimension. Multiple ultrasonographic images of the gallbladder show no focal or diffuse gallbladder wall thickening. There are no echogenic foci within the gallbladder lumen, which casts acoustic shadows. There is no pericholecystic edema. Images of the pancreatic region show no gross abnormality. The imaged portion of the right kidney is unremarkable. IMPRESSION: Unremarkable right upper quadrant ultrasound. Accredited by the [employer] in General Ultrasound. <Electronically signed by Maximiliano Watts > 02/28/20 [id number]
== END ==
LOC: M WHC 08:32
PROVIDERS: ATTEND Physician Assistant Medical
DX: R10.12 Left upper quadrant pain (principal)

== ENCOUNTER 2020-03-17 09:36 | Emergency (ER) | payer BC, OTHER ==
[~2020-03-17] VITALS: Ht 160 cm; Wt 74.0 kg
[~2020-03-17 09:36] MED LIST changes: -AUGM500T34 PO; -COLA100C5 PO; -MIRA3350 PO; -OMEP40CA97 PO
[2020-03-17] MEDS ORDERED: KETOROLAC 30 MG/ML 1ML VIAL IV ONE (10:30)
[2020-03-17] MEDS ORDERED: METOCLOPRAMIDE INJ 10MG/2ML VIAL (J2765 PER 1) IV ONE (10:30)
[2020-03-17] MEDS ORDERED: NS 1,000 ML IV ONE (10:30)
[2020-03-17 10:40] LABS: BASO % 0.6 % (0.0-1.0); EOS # 0.3 10^3/uL (0.0-0.5); EOS % 4.5 % (0.0-3.0); HEMATOCRIT 40.1 % (36.0-47.0); HEMOGLOBIN 12.7 g/dl (12.0-15.5); LYMPH # 1.7 10^3/uL (1.5-5.0); LYMPH % 25.9 % (24.0-44.0); MEAN CORPUSCULAR HEMOGLOBIN 28.7 pg (27.0-33.0); MEAN CORPUSCULAR HGB CONC 31.7 g/dl (32.0-36.5); MEAN CORPUSCULAR VOLUME 90.7 fl (80.0-96.0); MONO # 0.5 10^3/uL (0.0-0.8); MONO % 8.1 % (0.0-5.0); NEUTROPHILS # 4.1 10^3/uL (1.5-8.5); NEUTROPHILS % 60.5 % (36.0-66.0); PLATELET COUNT, AUTOMATED 261 10^3/uL (150-450); RED BLOOD COUNT 4.42 10^6/uL (4.00-5.40); WHITE BLOOD COUNT 6.7 10^3/uL (4.0-10.0)
[2020-03-17 11:05] LABS: ALBUMIN 3.9 GM/DL (3.2-5.2); ALT/SGPT 23 U/L (12-78); BILIRUBIN,DIRECT < 0.1 MG/DL (0.0-0.2); BILIRUBIN,TOTAL 0.3 MG/DL (0.2-1.0); CK-MB VALUE MASS 1.1 NG/ML (<3.6); CPK CREATINE PHOSPHOKINASE 69 U/L (26-192); LIPASE 194 U/L (73-393); MB/CK RELATIVE INDEX 1.59 (< OR =4); TOTAL PROTEIN 6.7 GM/DL (6.4-8.2); TROPONIN I < 0.02 NG/ML (< 0.10)
--- NOTE | 2020-03-17 11:46 | REP ---
INDICATION: upper abd pain. COMPARISON: 02/03/2020. TECHNIQUE: Supine and erect views of the abdomen are performed. A PA view of the chest is performed. FINDINGS: There is no evidence of free intraperitoneal air. There is no evidence of bowel obstruction. No dilated small bowel loops are seen. There is moderate fecal material scattered throughout the colon. No abnormal calcifications are seen. There are hypoplastic 12th ribs with only 4 lumbar type vertebral bodies, indicating a transitional lumbar vertebral body. The lungs are clear with no infiltrate. The heart mediastinum are within normal limits. IMPRESSION: No free air or obstruction. Moderate fecal retention. No infiltrate in either lung. <Electronically signed by Anatoly Rodriguez > 03/17/20 [id number]
--- NOTE | 2020-03-17 12:18 | REP ---
INDICATION: ruq pain, positive morton sign. COMPARISON: 02/28/2020, 05/21/2018 TECHNIQUE: Standard right upper quadrant ultrasound technique FINDINGS: Liver homogeneous in echotexture without focal hepatic mass, intrahepatic biliary dilatation or perihepatic ascites. There is no hepatomegaly. The gallbladder is contracted. There 4th wall thickness cannot be evaluated there is no visible stone mass or sludge. Common duct has a diameter 3.9 mm without a filling defect or stone. Visualized pancreas was unremarkable. No calcification with shadowing, ductal dilatation or mass. Right kidney is 10.6 x 4.4 x 4.5 cm without hydronephrosis, stone or visible mass. No free fluid in the abdomen. IMPRESSION: Limited examination. The gallbladder was contracted and technologist notes the patient had eaten within 2 hours of the examination. This is not an adequate preparation for gallbladder ultrasound and reduces the sensitivity of the examination for gallbladder disease significantly. Liver, common bile duct, pancreas and right kidney unremarkable no generalized ascites. <Electronically signed by Aakash Guzmán > 03/17/20 [id number]
[2020-03-17] MEDS ORDERED: GI COCKTAIL 50ML BTL(HYOSCYAMINE/MAALOX/LIDOCAINE VISCOUS)(1:3:1) PO ONE (12:30)
[2020-03-17] MEDS ORDERED: ISOVUE-370 76% 100ML VIAL As Ordered ONE (13:54)
[2020-03-17] MEDS ORDERED: cefTRIAXone SOD 1 GM in D5W MINI-BAG PLUS 50 ML IV ONE (14:00)
--- NOTE | 2020-03-17 14:03 | ECGEPIP ---
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
--- NOTE | 2020-03-17 14:35 | REP ---
INDICATION: upper abd pain COMPARISON: 02/17/2020. TECHNIQUE: CT Scan of the abdomen and pelvis was performed with intravenous administration of 100 cc of Isovue 370, without oral contrast. FINDINGS: Lung bases: Unremarkable. Liver: There is stable anterior liver cyst. Gallbladder: Unremarkable. Spleen: Normal. Adrenals: Normal. Pancreas: Normal. Kidneys: Normal. Small and large bowel: Unremarkable. Free fluid: There is a tiny amount of fluid in the cul-de-sac, likely physiologic in nature. Abdominal aorta: No aneurysm or dissection. Adenopathy: None. Appendix: There has been a prior appendectomy. Osseous structures: Unremarkable. Pelvis: No mass. There is a small umbilical hernia containing noninflamed fat. IMPRESSION: No significant acute findings. Essentially stable CT abdomen and pelvis as discussed in detail above. <Electronically signed by Anatoly Rodriguez > 03/17/20 1334
[2020-03-17] MEDS ORDERED: AUGM500T34 PO (15:16)
[2020-03-17] MEDS ORDERED: OMEP40CA97 PO (15:16)
[2020-03-17] MEDS ORDERED: MIRA3350 PO (15:25)
[2020-03-17] MEDS ORDERED: COLA100C5 PO (15:25)
[2020-03-17 15:28] VITALS: BP 121/71
[2020-03-23] MEDS ORDERED: DEPO150I IM (07:52)
== END 2020-03-17 16:08 | disposition home or self-care (01) ==
LOC: M ED 09:36
DX: K59.00 Constipation, unspecified (principal); F41.9 Anxiety disorder, unspecified; Z79.899 Other long term (current) drug therapy; Z79.3 Long term (current) use of hormonal contraceptives
CPT/HCPCS: 74021; 74177; 76705; 80047; 80076; 81001; 82550; 82553; 83690; 84484; 84702; 85025; 93005; 96361; 96365; 96375; 99284; J0696; J1885; J2765; Q9967

== ENCOUNTER → 2020-03-20 | Outpatient (CLI) | payer BC, OTHER ==
[~2020-03-20] MED LIST changes: +AUGM500T34 PO; +COLA100C5 PO; +DEPO150I IM; +MIRA3350 PO; +MULTCAP PO; +OMEP40CA97 PO
== END ==
LOC: M LABSMTC 10:15
PROVIDERS: ATTEND Anesthesiology
DX: Z01.812 Encounter for preprocedural laboratory examination (principal); Z20.828 Contact with and (suspected) exposure to other viral communicable diseases
CPT/HCPCS: C9803; U0003

== ENCOUNTER 2020-03-24 09:20 | Day surgery (SDC) | payer BC, OTHER ==
[~2020-03-24] VITALS: Ht 160 cm; Wt 73.0 kg
[~2020-03-24 09:20] MED LIST changes: +LR 1,000 ML IV ONE; -MULTCAP PO; +ceFAZolin SOD 1 GM in D5W MINI-BAG PLUS 50 ML IV ONE
[2020-03-24] MEDS ORDERED: propofoL 200 MG/20 ML VIAL As Ordered ONE ×2 (09:37→10:54)
[2020-03-24] MEDS ORDERED: ROCURONIUM BROMIDE 50 MG/5 ML VIAL As Ordered ONE ×2 (09:37→11:42)
[2020-03-24] MEDS ORDERED: LIDOCAINE 2% 100MG/5ML SDV (FOR ANES.) As Ordered ONE ×2 (09:37→10:44)
[2020-03-24] MEDS ORDERED: fentaNYL 100 MCG/2 ML INJECTION (J3010) As Ordered ONE ×2 (09:37→12:38)
[2020-03-24] MEDS ORDERED: ONDANSETRON 4MG/2ML VIAL As Ordered ONE ×2 (09:38→11:58)
[2020-03-24] MEDS ORDERED: dexameTHASONE 4 MG/ML 1ML VIAL (J1100 PER 1MG) As Ordered ONE (09:38)
[2020-03-24] MEDS ORDERED: MIDAZOLAM INJ 2MG/2ML VIAL (J2250 PER 1MG) As Ordered ONE (09:38)
[2020-03-24] MEDS ORDERED: KETOROLAC 60MG 2ML VIAL As Ordered ONE (09:58)
[2020-03-24] MEDS ORDERED: BUPIVACAINE HCL 0.25% 10ML VIAL As Ordered ONE (10:01)
[2020-03-24] MEDS ORDERED: LIDOCAINE W/EPINEPHRINE 1% 20ML VIAL As Ordered ONE (10:01)
[2020-03-24] MEDS ORDERED: MULTCAP PO (10:17)
[2020-03-24] MEDS ORDERED: SCOPOLAMINE 1MG TRANSDERMAL PATCH TOP ONE (11:00)
[2020-03-24] MEDS ORDERED: ACETAMINOPHEN 1000MG 100ML IV BTL (OFIRMEV) (J0131 PER 10MG) As Ordered ONE (11:39)
[2020-03-24] MEDS ORDERED: SUGAMMADEX SODIUM 500 MG/5 ML VIAL (BRIDION) As Ordered ONE (11:39)
[2020-03-24] MEDS ORDERED: METOCLOPRAMIDE INJ 10MG/2ML VIAL (J2765 PER 1) As Ordered ONE (11:56)
[2020-03-24] MEDS: fentaNYL 100 MCG/2 ML INJECTION (J3010) IV PRN ×4 (12:38→13:08)
[2020-03-24] MEDS ORDERED: NORCO, ANEXSIA 5/325MG TABLET (HYDROcodone/ACETAMINOPHEN) PO PRN (12:45)
[2020-03-24] MEDS ORDERED: oxyCODONE 5MG TAB PO PRN (12:45)
[2020-03-24] MEDS ORDERED: NS 1,000 ML IV SCH (12:45)
[2020-03-24] MEDS ORDERED: ONDANSETRON 4MG/2ML VIAL IV PRN ×2 (12:45→14:00)
[2020-03-24] MEDS ORDERED: LR 1,000 ML IV SCH (12:45)
[2020-03-24 15:35] VITALS: BP 124/68
== END 2020-03-24 15:55 | disposition home or self-care (01) ==
LOC: M SDC 09:20
PROVIDERS: ATTEND Surgery
DX: K82.9 Disease of gallbladder, unspecified (principal); F41.9 Anxiety disorder, unspecified; Z79.899 Other long term (current) drug therapy
CPT/HCPCS: 47562; 81025; 88304; J0131; J0690; J1100; J1885; J2250; J2405; J2765; J3010

== ENCOUNTER → 2020-05-21 | Outpatient (REF) | payer OTHER ==
[~2020-05-21] MED LIST changes: -LR 1,000 ML IV ONE; +MULTCAP PO; -ceFAZolin SOD 1 GM in D5W MINI-BAG PLUS 50 ML IV ONE
== END ==
LOC: M WUC 17:33
PROVIDERS: ATTEND Physician Assistant
DX: J02.9 Acute pharyngitis, unspecified (principal)

== ENCOUNTER → 2020-06-23 | Outpatient (REF) | payer OTHER ==
[2020-06-23 15:13] LABS: BASO # 0.1 10^3/uL (0.0-0.2); BASO % 0.8 % (0.0-1.0); EOS # 0.3 10^3/uL (0.0-0.5); EOS % 4.4 % (0.0-3.0); HEMATOCRIT 43.6 % (36.0-47.0); HEMOGLOBIN 14.1 g/dl (12.0-15.5); LYMPH # 2.8 10^3/uL (1.5-5.0); LYMPH % 38.6 % (24.0-44.0); MEAN CORPUSCULAR HEMOGLOBIN 28.8 pg (27.0-33.0); MEAN CORPUSCULAR HGB CONC 32.3 g/dl (32.0-36.5); MEAN CORPUSCULAR VOLUME 89.2 fl (80.0-96.0); MONO # 0.5 10^3/uL (0.0-0.8); NEUTROPHILS # 3.5 10^3/uL (1.5-8.5); NEUTROPHILS % 48.8 % (36.0-66.0); PLATELET COUNT, AUTOMATED 303 10^3/uL (150-450); RED BLOOD COUNT 4.89 10^6/uL (4.00-5.40); WHITE BLOOD COUNT 7.3 10^3/uL (4.0-10.0)
[2020-06-23 15:48] LABS: ALBUMIN 4.2 GM/DL (3.2-5.2); ALT/SGPT 29 U/L (12-78); AMYLASE 61 U/L (25-115); BILIRUBIN,DIRECT < 0.1 MG/DL (0.0-0.2); BILIRUBIN,TOTAL 0.4 MG/DL (0.2-1.0); BLOOD UREA NITROGEN 14 MG/DL (7-18); CALCIUM LEVEL 9.2 MG/DL (8.5-10.1); CARBON DIOXIDE LEVEL 28 MEQ/L (21-32); CHLORIDE LEVEL 105 MEQ/L (98-107); CREATININE FOR GFR 0.79 MG/DL (0.55-1.30); GLOMERULAR FILTRATION RATE > 60.0 (>60); GLUCOSE, FASTING 86 MG/DL (70-100); LIPASE 173 U/L (73-393); POTASSIUM SERUM 4.1 MEQ/L (3.5-5.1); SODIUM LEVEL 141 MEQ/L (136-145); TOTAL PROTEIN 7.6 GM/DL (6.4-8.2)
[2020-06-23 15:52] LABS: FREE T4 0.98 NG/DL (0.76-1.46); THYROID STIMULATING HORMONE 3.05 uIU/ML (0.358-3.740)
== END ==
LOC: M PLALAB 13:59
PROVIDERS: ATTEND Nurse Practitioner Women's Health
DX: R68.82 Decreased libido (principal)

== ENCOUNTER → 2020-08-09 | Outpatient (CLI) | payer OTHER ==
[2020-08-09 14:51] LABS: PERCENT SATURATION 22.3 % (13.2-45.0)
[2020-08-09 15:09] LABS: H PYLORI QUALITATIVE IgG NEGATIVE (NEGATIVE)
== END ==
LOC: M PLALAB 09:49
PROVIDERS: ATTEND Internal Medicine Gastroenterology
DX: R10.12 Left upper quadrant pain (principal)

== ENCOUNTER → 2020-08-11 | Outpatient (REF) | payer OTHER | LOC: M LAB REF 09:52 | PROVIDERS: ATTEND Internal Medicine Gastroenterology | DX: R10.12 Left upper quadrant pain (principal) ==

== ENCOUNTER → 2020-08-22 | Outpatient (CLI) | payer BC, OTHER ==
--- NOTE | 2020-08-22 09:04 | REP ---
INDICATION: LUQ ABD PAIN COMPARISON: 03/17/2020 TECHNIQUE: Real time graham scale ultrasound examination using curved array transducer. FINDINGS: Liver is normal in contour, size, and echogenicity without focal hepatic lesions identified. Hepatic cyst identified on recent CT is not visible by ultrasound. Pancreas is incompletely evaluated due to interposed bowel gas. Patient is status post cholecystectomy. No biliary ductal dilatation is appreciated and the common bile duct measures 4.0 mm diameter. Right kidney is normal in reniform shape without hydronephrosis and measures 10.8 x 6.5 x 4.0 cm. No ascites in the visualized right upper quadrant. A small fat containing periumbilical hernia measures up to 6 mm on Valsalva. IMPRESSION: Unremarkable abdominal ultrasound. Small fat containing periumbilical hernia. <Electronically signed by Los Johnson > 08/22/20 0900
== END ==
LOC: M RAD 08:22
PROVIDERS: ATTEND Internal Medicine Gastroenterology
DX: K42.9 Umbilical hernia without obstruction or gangrene (principal)

== ENCOUNTER → 2020-09-04 | Outpatient (REF) | payer BC, OTHER | LOC: M LAB REF 19:41 | PROVIDERS: ATTEND Physician Assistant | DX: J00 Acute nasopharyngitis [common cold] (principal) ==

== ENCOUNTER → 2020-10-10 | Outpatient (REF) | payer OTHER | LOC: M SFHCWAGY 13:26 | PROVIDERS: ATTEND Nurse Practitioner Women's Health | DX: Z12.4 Encounter for screening for malignant neoplasm of cervix (principal) ==

== ENCOUNTER → 2020-11-28 | Outpatient (CLI) | payer BC, OTHER ==
[~2020-11-28] MED LIST changes: +OMEP40CA4 PO; -OMEP40CA97 PO
[2020-11-28 10:15] LABS: CHOLESTEROL RISK RATIO 3.911 (<5)
[2020-11-28 10:43] LABS: HEMOGLOBIN A1c 5.6 %
== END ==
LOC: M LAB 08:39
PROVIDERS: ATTEND Physician Assistant Medical
DX: Z13.220 Encounter for screening for lipoid disorders (principal); M25.512 Pain in left shoulder; R10.31 Right lower quadrant pain; K81.0 Acute cholecystitis; Z13.1 Encounter for screening for diabetes mellitus

== ENCOUNTER 2020-12-20 12:52 | Emergency (ER) | payer BC, OTHER ==
[~2020-12-20] VITALS: Ht 162.6 cm; Wt 85.4 kg
[2020-12-20] MEDS ORDERED: NS 1,000 ML IV ONE (13:50)
[2020-12-20 14:17] LABS: HEMATOCRIT 41.6 % (36.0-47.0); HEMOGLOBIN 13.3 g/dl (12.0-15.5); MEAN CORPUSCULAR HEMOGLOBIN 28.8 pg (27.0-33.0); PLATELET COUNT, AUTOMATED 276 10^3/uL (150-450); RED BLOOD COUNT 4.62 10^6/uL (4.00-5.40); WHITE BLOOD COUNT 6.5 10^3/uL (4.0-10.0)
[2020-12-20 15:36] LABS: FREE THYROXINE INDEX 2.2 % (1.3-4.8); THYROID STIMULATING HORMONE 2.17 uIU/ML (0.358-3.740); THYROXINE (T4) 7.2 UG/DL (4.5-12.0)
[2020-12-20 16:53] VITALS: BP 113/71
--- NOTE | 2020-12-21 06:35 | ECGEPIP ---
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
== END 2020-12-20 17:25 | disposition home or self-care (01) ==
LOC: M ED 12:52
DX: R42 Dizziness and giddiness (principal); R00.2 Palpitations; I45.19 Other right bundle-branch block; K58.9 Irritable bowel syndrome, unspecified; Z79.899 Other long term (current) drug therapy

== ENCOUNTER → 2021-01-26 | Outpatient (CLI) | payer BC, OTHER ==
[2021-01-26 17:44] LABS: BASO # 0.1 10^3/uL (0.0-0.2); BASO % 0.6 % (0.0-1.0); EOS # 0.3 10^3/uL (0.0-0.5); EOS % 2.6 % (0.0-3.0); HEMATOCRIT 43.9 % (36.0-47.0); HEMOGLOBIN 13.9 g/dl (12.0-15.5); LYMPH # 2.3 10^3/uL (1.5-5.0); LYMPH % 22.4 % (24.0-44.0); MEAN CORPUSCULAR HEMOGLOBIN 28.9 pg (27.0-33.0); MEAN CORPUSCULAR HGB CONC 31.7 g/dl (32.0-36.5); MEAN CORPUSCULAR VOLUME 91.3 fl (80.0-96.0); MONO # 0.8 10^3/uL (0.0-0.8); MONO % 7.6 % (2.0-8.0); NEUTROPHILS # 6.8 10^3/uL (1.5-8.5); NEUTROPHILS % 66.3 % (36.0-66.0); PLATELET COUNT, AUTOMATED 294 10^3/uL (150-450); RED BLOOD COUNT 4.81 10^6/uL (4.00-5.40); WHITE BLOOD COUNT 10.2 10^3/uL (4.0-10.0)
[2021-01-26 18:01] LABS: HEMOGLOBIN A1c 5.5 %
[2021-01-26 18:20] LABS: ALBUMIN 3.5 GM/DL (3.2-5.2); ALT/SGPT 18 U/L (12-78); BILIRUBIN,TOTAL 0.3 MG/DL (0.2-1.0); BLOOD UREA NITROGEN 12 MG/DL (7-18); CALCIUM LEVEL 9.1 MG/DL (8.5-10.1); CARBON DIOXIDE LEVEL 26 MEQ/L (21-32); CHLORIDE LEVEL 107 MEQ/L (98-107); CHOLESTEROL LEVEL 137 MG/DL (<200); CHOLESTEROL RISK RATIO 4.566 (<5); CREATININE FOR GFR 0.68 MG/DL (0.55-1.30); GLOMERULAR FILTRATION RATE > 60.0 (>60); GLUCOSE, FASTING 76 MG/DL (70-100); HDL CHOLESTEROL 30 MG/DL (>40); LDL CHOLESTEROL 79 MG/DL (<100); NON-HDL-C 107 MG/DL; POTASSIUM SERUM 4.5 MEQ/L (3.5-5.1); SODIUM LEVEL 141 MEQ/L (136-145); TOTAL PROTEIN 6.7 GM/DL (6.4-8.2); TRIGLYCERIDES LEVEL 139 MG/DL (<150)
== END ==
LOC: M PLALAB 13:51
PROVIDERS: ATTEND Physician Assistant Medical
DX: Z13.1 Encounter for screening for diabetes mellitus (principal); Z13.220 Encounter for screening for lipoid disorders; R10.31 Right lower quadrant pain; F41.9 Anxiety disorder, unspecified

== ENCOUNTER → 2021-02-26 | Outpatient (REF) | LOC: M EMP 08:48 | PROVIDERS: ATTEND Family Medicine | DX: Z20.822 Contact with and (suspected) exposure to COVID-19 (principal) ==

== ENCOUNTER → 2021-03-01 | Outpatient (REF) | LOC: M LABSMTC 10:07 | PROVIDERS: ATTEND Pediatrics | DX: Z11.52 Encounter for screening for COVID-19 (principal) ==

== ENCOUNTER → 2021-03-13 | Outpatient (REF) | LOC: M EMP 07:54 | PROVIDERS: ATTEND Family Medicine | DX: Z20.822 Contact with and (suspected) exposure to COVID-19 (principal) ==

== ENCOUNTER → 2021-03-16 | Outpatient (REF) | LOC: M LABSMTC 09:49 | PROVIDERS: ATTEND Pediatrics | DX: Z20.828 Contact with and (suspected) exposure to other viral communicable diseases (principal) ==

== ENCOUNTER → 2021-03-29 | Outpatient (CLI) | payer BC, OTHER ==
--- NOTE | 2021-03-29 09:43 | REP ---
INDICATION: PAIN COMPARISON: None. TECHNIQUE: AP, lateral, bilateral oblique and sunrise views. FINDINGS: The osseous structures and joint spaces are intact and normal. There is no evidence for acute fracture or dislocation. No joint effusion is appreciated. Surrounding soft tissues are unremarkable. No subcutaneous emphysema or radiodense foreign body. IMPRESSION: Normal examination. No acute fracture or dislocation. <Electronically signed by Los Johnson > 03/29/21 [id number]
== END ==
LOC: M WUC 08:35
PROVIDERS: ATTEND Physician Assistant
DX: M25.561 Pain in right knee (principal)

== ENCOUNTER → 2021-04-23 | Outpatient (CLI) | payer OTHER ==
--- NOTE | 2021-04-24 09:17 | REP ---
INDICATION: PAIN IN LEFT SHOULDER. COMPARISON: None. TECHNIQUE: Coronal oblique T1 and fat suppressed T2. Sagittal oblique fat suppressed T2. Axial brvqh-hyozxboa-agae and T2 FLASH. FINDINGS: The acromioclavicular joint is within normal limits. The acromion process is type 1. Subtle patchy and linear T2 hyper signal is seen in the supraspinatus tendon. There is no musculotendinous retraction or muscular atrophy. Normal appearing low signal is seen throughout the subscapularis, infraspinatus, and teres minor tendons. The biceps tendon resides within the bicipital groove. There is no glenohumeral joint effusion. There is no abnormal fluid in the subcoracoid recess. The marrow signal is within normal limits. There is no abnormal coracohumeral or coracoacromial ligamentous thickening. IMPRESSION: There is mild supraspinatus tendinitis/tendinosis. <Electronically signed by Maximiliano Watts > 04/24/21 [id number]
== END ==
LOC: M RAD 16:11
PROVIDERS: ATTEND Orthopaedic Surgery
DX: M25.512 Pain in left shoulder (principal); M75.82 Other shoulder lesions, left shoulder

== ENCOUNTER → 2021-06-29 | Outpatient (CLI) | payer BC, OTHER ==
[2021-06-29 13:10] LABS: BASO # 0.1 10^3/uL (0.0-0.2); BASO % 0.9 % (0.0-1.0); EOS # 0.3 10^3/uL (0.0-0.5); EOS % 4.3 % (0.0-3.0); HEMATOCRIT 40.7 % (36.0-47.0); LYMPH # 2.3 10^3/uL (1.5-5.0); LYMPH % 32.7 % (24.0-44.0); MEAN CORPUSCULAR HEMOGLOBIN 29.3 pg (27.0-33.0); MEAN CORPUSCULAR HGB CONC 31.9 g/dl (32.0-36.5); MEAN CORPUSCULAR VOLUME 91.9 fl (80.0-96.0); MONO # 0.7 10^3/uL (0.0-0.8); MONO % 10.5 % (2.0-8.0); NEUTROPHILS # 3.6 10^3/uL (1.5-8.5); NEUTROPHILS % 51.3 % (36.0-66.0); PLATELET COUNT, AUTOMATED 288 10^3/uL (150-450); RED BLOOD COUNT 4.43 10^6/uL (4.00-5.40)
[2021-06-29 13:34] LABS: ERYTHROCYTE SEDIMENTATION RATE 10 mm/hr (0-20)
[2021-06-29 13:40] LABS: ALBUMIN 3.9 GM/DL (3.2-5.2); ALT/SGPT 25 U/L (12-78); BILIRUBIN,TOTAL 0.4 MG/DL (0.2-1.0); BLOOD UREA NITROGEN 13 MG/DL (7-18); C REACTIVE PROTEIN QUANTITATIV 0.66 MG/DL (0.00-0.30); CALCIUM LEVEL 8.7 MG/DL (8.5-10.1); CARBON DIOXIDE LEVEL 28 MEQ/L (21-32); CHLORIDE LEVEL 106 MEQ/L (98-107); CHOLESTEROL LEVEL 132 MG/DL (<200); CHOLESTEROL RISK RATIO 3.771 (<5); CREATININE FOR GFR 0.77 MG/DL (0.55-1.30); FREE T4 0.93 NG/DL (0.76-1.46); GLOMERULAR FILTRATION RATE > 60.0 (>60); GLUCOSE, FASTING 84 MG/DL (70-100); HDL CHOLESTEROL 35 MG/DL (>40); LDL CHOLESTEROL 81 MG/DL (<100); NON-HDL-C 97 MG/DL; RHEUMATOID FACTOR QUANT < 10.0 IU/ML (<15.0); SODIUM LEVEL 141 MEQ/L (136-145); TOTAL PROTEIN 7.1 GM/DL (6.4-8.2); TRIGLYCERIDES LEVEL 82 MG/DL (<150)
[2021-06-29 13:58] LABS: HEMOGLOBIN A1c 5.4 %
== END ==
LOC: M PLALAB 11:09
PROVIDERS: ATTEND Physician Assistant Medical
DX: Z13.1 Encounter for screening for diabetes mellitus (principal); F41.9 Anxiety disorder, unspecified; Z13.220 Encounter for screening for lipoid disorders; M25.512 Pain in left shoulder

== ENCOUNTER → 2021-08-27 | Outpatient (REF) | LOC: M LABSMTC 11:47 | PROVIDERS: ATTEND Family Medicine | DX: Z20.822 Contact with and (suspected) exposure to COVID-19 (principal) ==

== ENCOUNTER → 2022-02-26 | Outpatient (CLI) | payer MEDICAID, OTHER | LOC: M RAD 08:21 | PROVIDERS: ATTEND Physician Assistant Medical | DX: R10.2 Pelvic and perineal pain (principal) ==

== ENCOUNTER 2022-08-22 06:54 | Emergency (ER) | payer BC, OTHER, MEDICAID ==
[~2022-08-22] VITALS: Ht 160 cm; Wt 78.2 kg
[2022-08-22] MEDS ORDERED: NS 1,000 ML IV ONE (08:20)
[2022-08-22] MEDS ORDERED: PANTOPRAZOLE 40MG VIAL IV ONE (08:20)
[2022-08-22] MEDS ORDERED: SUCRALFATE 1 GM TAB PO ONE (08:20)
[2022-08-22] MEDS ORDERED: GI COCKTAIL 50ML BTL(HYOSCYAMINE/MAALOX/LIDOCAINE VISCOUS)(1:3:1) PO ONE (08:20)
[2022-08-22 09:15] LABS: BASO % 0.5 % (0.0-1.0); EOS # 0.2 10^3/uL (0.0-0.5); EOS % 2.3 % (0.0-3.0); HEMATOCRIT 44.3 % (36.0-47.0); HEMOGLOBIN 14.1 g/dl (12.0-15.5); LYMPH # 1.6 10^3/uL (1.5-5.0); LYMPH % 24.4 % (24.0-44.0); MEAN CORPUSCULAR HEMOGLOBIN 29.3 pg (27.0-33.0); MEAN CORPUSCULAR HGB CONC 31.8 g/dl (32.0-36.5); MEAN CORPUSCULAR VOLUME 91.9 fl (80.0-96.0); MONO # 0.4 10^3/uL (0.0-0.8); MONO % 6.5 % (2.0-8.0); NEUTROPHILS # 4.4 10^3/uL (1.5-8.5); PLATELET COUNT, AUTOMATED 301 10^3/uL (150-450); RED BLOOD COUNT 4.82 10^6/uL (4.00-5.40); WHITE BLOOD COUNT 6.7 10^3/uL (4.0-10.0)
[2022-08-22 09:35] LABS: ALBUMIN 3.8 G/DL (3.2-5.2); ALKALINE PHOSPHATASE 55 U/L (46-116); ALT/SGPT 16 U/L (7.0-40); AST/SGOT 16 U/L (<34); BILIRUBIN,TOTAL 0.4 MG/DL (0.3-1.2); BLOOD UREA NITROGEN 15 MG/DL (9-23); CALCIUM LEVEL 9.2 MG/DL (8.5-10.1); CARBON DIOXIDE LEVEL 26 MMOL/L (20-31); CHLORIDE LEVEL 107 MMOL/L (98-107); CREATININE FOR GFR 0.62 MG/DL (0.55-1.30); GLOMERULAR FILTRATION RATE > 60.0 (>60); GLUCOSE, FASTING 93 MG/DL (60-100); POTASSIUM SERUM 4.5 MMOL/L (3.5-5.1); SODIUM LEVEL 140 MMOL/L (136-145); TOTAL PROTEIN 6.9 G/DL (5.7-8.2)
[2022-08-22] MEDS ORDERED: KETOROLAC 30 MG/ML 1ML VIAL IV ONE (10:40)
[2022-08-22] MEDS ORDERED: ISOVUE-370 76% 100ML VIAL As Ordered ONE (10:44)
[2022-08-22] MEDS ORDERED: FAMO20TA PO (12:24)
[2022-08-22] MEDS ORDERED: CARA1TAB6 PO (12:24)
[2022-08-22 12:38] VITALS: BP 111/72
== END 2022-08-22 12:43 | disposition home or self-care (01) ==
LOC: M ED 06:54
DX: R10.13 Epigastric pain (principal); R07.89 Other chest pain; K58.9 Irritable bowel syndrome, unspecified; N83.292 Other ovarian cyst, left side; Z79.899 Other long term (current) drug therapy
CPT/HCPCS: 74177; 76705; 80053; 84702; 85025; 96361; 96374; 96375; 99284; C9113; J1885; Q9967

== ENCOUNTER 2022-09-30 11:13 | Day surgery (SDC) | payer BC ==
[~2022-09-30] VITALS: Ht 162.6 cm; Wt 77.2 kg
[~2022-09-30 11:13] MED LIST changes: +CARA1TAB6 PO; +FAMO20TA PO; +NORE1PAT TD; +NS 1,000 ML IV ONE; +SUCR1TAB56 PO
[2022-09-30] MEDS ORDERED: LIDOCAINE 2% 100MG/5ML SDV (FOR ANES.) As Ordered ONE (12:20)
[2022-09-30] MEDS ORDERED: propofoL 200 MG/20 ML VIAL As Ordered ONE ×2 (12:20→13:19)
[2022-09-30] MEDS ORDERED: fentaNYL 100 MCG/2 ML INJECTION As Ordered ONE (13:01)
[2022-09-30 14:20] VITALS: BP 110/69
== END 2022-09-30 14:22 | disposition home or self-care (01) ==
LOC: M OPP 11:13
PROVIDERS: ATTEND Internal Medicine Gastroenterology
DX: K64.4 Residual hemorrhoidal skin tags (principal); K64.8 Other hemorrhoids; K63.89 Other specified diseases of intestine; K29.70 Gastritis, unspecified, without bleeding; K31.89 Other diseases of stomach and duodenum; K30 Functional dyspepsia; Z79.899 Other long term (current) drug therapy
CPT/HCPCS: 43239; 45380; 88305; J3010

== ENCOUNTER → 2022-10-04 | Outpatient (REF) | payer BC ==
[~2022-10-04] MED LIST changes: -NS 1,000 ML IV ONE
== END ==
LOC: M SFHCPLAZ 09:02
PROVIDERS: ATTEND Physician Assistant Medical
DX: R07.2 Precordial pain (principal); R10.13 Epigastric pain

== ENCOUNTER → 2022-10-04 | Outpatient (CLI) | payer BC ==
[2022-10-04 13:12] LABS: BASO # 0.1 10^3/uL (0.0-0.2); BASO % 0.7 % (0.0-1.0); EOS # 0.3 10^3/uL (0.0-0.5); EOS % 4.4 % (0.0-3.0); HEMATOCRIT 43.1 % (36.0-47.0); HEMOGLOBIN 13.9 g/dl (12.0-15.5); LYMPH # 2.4 10^3/uL (1.5-5.0); LYMPH % 31.4 % (24.0-44.0); MEAN CORPUSCULAR HEMOGLOBIN 29.7 pg (27.0-33.0); MEAN CORPUSCULAR HGB CONC 32.3 g/dl (32.0-36.5); MEAN CORPUSCULAR VOLUME 92.1 fl (80.0-96.0); MONO # 0.6 10^3/uL (0.0-0.8); MONO % 7.7 % (2.0-8.0); NEUTROPHILS # 4.1 10^3/uL (1.5-8.5); PLATELET COUNT, AUTOMATED 292 10^3/uL (150-450); RED BLOOD COUNT 4.68 10^6/uL (4.00-5.40); WHITE BLOOD COUNT 7.5 10^3/uL (4.0-10.0)
[2022-10-04 13:14] LABS: CK-MB VALUE MASS < 1.0 NG/ML (<3.6)
[2022-10-04 13:16] LABS: ALBUMIN 3.7 G/DL (3.2-5.2); ALKALINE PHOSPHATASE 53 U/L (46-116); ALT/SGPT 17 U/L (7.0-40); AST/SGOT 14 U/L (<34); BILIRUBIN,TOTAL 0.5 MG/DL (0.3-1.2); BLOOD UREA NITROGEN 11 MG/DL (9-23); CALCIUM LEVEL 8.6 MG/DL (8.5-10.1); CARBON DIOXIDE LEVEL 29 MMOL/L (20-31); CHLORIDE LEVEL 107 MMOL/L (98-107); CREATININE FOR GFR 0.74 MG/DL (0.55-1.30); GLOMERULAR FILTRATION RATE > 60.0 (>60); GLUCOSE, FASTING 86 MG/DL (60-100); SODIUM LEVEL 139 MMOL/L (136-145); TOTAL PROTEIN 6.5 G/DL (5.7-8.2)
[2022-10-04 13:28] LABS: CPK CREATINE PHOSPHOKINASE 39 U/L (34-145); MB/CK RELATIVE INDEX 2.56 (< OR =4)
== END ==
LOC: M PLALAB 09:42
PROVIDERS: ATTEND Physician Assistant Medical
DX: R06.02 Shortness of breath (principal)

== ENCOUNTER → 2023-05-16 | Outpatient (CLI) | payer BC | LOC: M PLALAB 09:45 | PROVIDERS: ATTEND Physician Assistant Medical | DX: R05.3 Chronic cough (principal) ==

== ENCOUNTER → 2023-07-10 | Outpatient (REF) | payer BC ==
[2023-07-10 15:49] LABS: APPEARANCE, URINE CLEAR (CLEAR); BACTERIA, URINE AUTO NEGATIVE (NEGATIVE); BILIRUBIN, URINE AUTO NEGATIVE (NEGATIVE); BLOOD, URINE BLOOD NEGATIVE (NEGATIVE); COLOR, URINE YELLOW (YELLOW); GLUCOSE, URINE (UA) AUTO NEGATIVE (NEGATIVE); KETONE, URINE AUTO NEGATIVE (NEGATIVE); LEUKOCYTE ESTERASE, URINE AUTO NEGATIVE (NEGATIVE); MUCUS, URINE SMALL (NEGATIVE); NITRITE, URINE AUTO NEGATIVE (NEGATIVE); PROTEIN, URINE AUTO NEGATIVE (NEGATIVE); RBC, URINE AUTO 1 /HPF (0-3); SPECIFIC GRAVITY URINE AUTO 1.023 (1.002-1.035); SQUAMOUS EPITHELIAL CELL UR AU 0 /HPF (0-6); UROBILINOGEN, URINE AUTO 0.2 mg/dL (0.0-2.0); WBC, URINE AUTO 0 /HPF (0-3)
== END ==
LOC: M PLALAB 14:37
PROVIDERS: ATTEND Advanced Practice Midwife
DX: R10.2 Pelvic and perineal pain (principal)

== ENCOUNTER → 2023-07-16 | Outpatient (CLI) | payer BC ==
[2023-07-16 17:18] LABS: BASO # 0.1 10^3/uL (0.0-0.2); BASO % 0.6 % (0.0-1.0); EOS # 0.3 10^3/uL (0.0-0.5); EOS % 3.3 % (0.0-3.0); HEMATOCRIT 38.8 % (36.0-47.0); HEMOGLOBIN 12.8 g/dl (12.0-15.5); LYMPH # 3.1 10^3/uL (1.5-5.0); LYMPH % 36.5 % (24.0-44.0); MEAN CORPUSCULAR HEMOGLOBIN 30.1 pg (27.0-33.0); MEAN CORPUSCULAR VOLUME 91.3 fl (80.0-96.0); MONO # 0.7 10^3/uL (0.0-0.8); MONO % 7.7 % (2.0-8.0); NEUTROPHILS # 4.4 10^3/uL (1.5-8.5); NEUTROPHILS % 51.7 % (36.0-66.0); PLATELET COUNT, AUTOMATED 325 10^3/uL (150-450); RED BLOOD COUNT 4.25 10^6/uL (4.00-5.40); WHITE BLOOD COUNT 8.5 10^3/uL (4.0-10.0)
[2023-07-16 17:47] LABS: HEMOGLOBIN A1c 5.3 % (4.0-6.0)
[2023-07-16 17:50] LABS: ALBUMIN 3.6 G/DL (3.2-5.2); ALKALINE PHOSPHATASE 51 U/L (46-116); ALT/SGPT 12 U/L (7.0-40); AST/SGOT 10 U/L (<34); BILIRUBIN,TOTAL 0.3 MG/DL (0.3-1.2); BLOOD UREA NITROGEN 12 MG/DL (9-23); CALCIUM LEVEL 8.8 MG/DL (8.5-10.1); CARBON DIOXIDE LEVEL 28 MMOL/L (20-31); CHLORIDE LEVEL 104 MMOL/L (98-107); CHOLESTEROL LEVEL 161 MG/DL (<200); CHOLESTEROL RISK RATIO 2.91 (<5); CREATININE FOR GFR 0.69 MG/DL (0.55-1.30); FREE T4 0.87 NG/DL (0.89-1.76); GLOMERULAR FILTRATION RATE > 60.0 (>60); GLUCOSE, FASTING 89 MG/DL (60-100); HDL CHOLESTEROL 55.2 MG/DL (>40); LDL CHOLESTEROL 83.8 MG/DL (<100); NON-HDL-C 105.8 MG/DL; POTASSIUM SERUM 4.4 MMOL/L (3.5-5.1); SODIUM LEVEL 138 MMOL/L (136-145); THYROID STIMULATING HORMONE 3.189 uIU/ML (0.55-4.78); TOTAL PROTEIN 6.5 G/DL (5.7-8.2); TRIGLYCERIDES LEVEL 110 MG/DL (<150)
== END ==
LOC: M PLALAB 13:56
PROVIDERS: ATTEND Physician Assistant Medical
DX: E66.9 Obesity, unspecified (principal); F41.9 Anxiety disorder, unspecified; Z00.00 Encounter for general adult medical examination without abnormal findings; Z12.11 Encounter for screening for malignant neoplasm of colon; Z13.220 Encounter for screening for lipoid disorders

== ENCOUNTER → 2023-09-09 | Outpatient (CLI) | payer BC ==
[2023-09-09 18:15] LABS: BLOOD UREA NITROGEN 14 MG/DL (9-23); CALCIUM LEVEL 9.5 MG/DL (8.5-10.1); CARBON DIOXIDE LEVEL 30 MMOL/L (20-31); CHLORIDE LEVEL 102 MMOL/L (98-107); CREATININE FOR GFR 0.72 MG/DL (0.55-1.30); GLOMERULAR FILTRATION RATE > 60.0 (>60); GLUCOSE, FASTING 85 MG/DL (60-100); POTASSIUM SERUM 4.4 MMOL/L (3.5-5.1); SODIUM LEVEL 136 MMOL/L (136-145)
== END ==
LOC: M PLALAB 15:07
PROVIDERS: ATTEND Physician Assistant Medical
DX: E87.6 Hypokalemia (principal)

== ENCOUNTER → 2023-11-28 | Outpatient (REF) | payer BC ==
[~2023-11-28] MED LIST changes: +ONDA-282 PO; -ONDA4TAB6 PO
== END ==
LOC: M LAB REF 21:34
PROVIDERS: ATTEND Physician Assistant
DX: J02.9 Acute pharyngitis, unspecified (principal)

== ENCOUNTER → 2024-01-01 | Outpatient (CLI) | payer BC | LOC: M RAD 14:11 | PROVIDERS: ATTEND Nurse Practitioner Family | DX: Z34.90 Encounter for supervision of normal pregnancy, unspecified, unspecified trimester (principal) ==

== ENCOUNTER → 2024-01-15 | Outpatient (CLI) | payer BC | LOC: M WHC 08:12 | PROVIDERS: ATTEND Advanced Practice Midwife | DX: N60.09 Solitary cyst of unspecified breast (principal) ==

== ENCOUNTER → 2024-02-26 | Outpatient (CLI) | payer BC | LOC: M LAB 07:10 | PROVIDERS: ATTEND Physician Assistant Medical | DX: R61 Generalized hyperhidrosis (principal) ==

== ENCOUNTER → 2024-03-15 | Outpatient (REF) | payer BC | LOC: M LAB REF 16:31 | PROVIDERS: ATTEND Physician Assistant Medical | DX: B34.9 Viral infection, unspecified (principal) ==

== ENCOUNTER → 2024-03-26 | Outpatient (CLI) | payer BC | LOC: M WHC 07:08 | PROVIDERS: ATTEND Obstetrics & Gynecology | DX: Z34.82 Encounter for supervision of other normal pregnancy, second trimester (principal) ==

== ENCOUNTER 2024-05-19 07:48 | Outpatient (CLI) | payer BC ==
[~2024-05-19] VITALS: Ht 162.6 cm; Wt 80.6 kg
[2024-05-19] MEDS ORDERED: ACET-907 PO (08:01)
[2024-05-19] MEDS ORDERED: PRENTAB9 PO (08:01)
[2024-05-19] MEDS ORDERED: METO37.5 PO (08:04)
[2024-05-19] MEDS ORDERED: HOME MED LIST COMPLETE! XX SCH (08:10)
[2024-05-19 08:11] VITALS: BP 111/75
[2024-05-19 09:02] LABS: APPEARANCE, URINE HAZY (CLEAR); BACTERIA, URINE AUTO 1+ (NEGATIVE); BILIRUBIN, URINE AUTO NEGATIVE (NEGATIVE); BLOOD, URINE BLOOD NEGATIVE (NEGATIVE); COLOR, URINE YELLOW (YELLOW); GLUCOSE, URINE (UA) AUTO NEGATIVE (NEGATIVE); KETONE, URINE AUTO NEGATIVE (NEGATIVE); LEUKOCYTE ESTERASE, URINE AUTO 1+ (NEGATIVE); MUCUS, URINE SMALL (NEGATIVE); NITRITE, URINE AUTO NEGATIVE (NEGATIVE); PROTEIN, URINE AUTO NEGATIVE (NEGATIVE); RBC, URINE AUTO 2 /HPF (0-3); SPECIFIC GRAVITY URINE AUTO 1.006 (1.002-1.035); SQUAMOUS EPITHELIAL CELL UR AU 12 /HPF (0-6); UROBILINOGEN, URINE AUTO 0.2 mg/dL (0.0-2.0); WBC, URINE AUTO 11 /HPF (0-3)
[2024-05-19] MEDS: CYCLOBENZAPRINE 10MG TABLET PO ONE (09:10)
[2024-05-19 10:17] LABS: BASO % 0.3 % (0.0-1.0); EOS # 0.1 10^3/uL (0.0-0.5); EOS % 1.1 % (0.0-3.0); HEMOGLOBIN 11.3 g/dl (12.0-15.5); LYMPH # 1.5 10^3/uL (1.5-5.0); MEAN CORPUSCULAR HEMOGLOBIN 31.2 pg (27.0-33.0); MEAN CORPUSCULAR HGB CONC 33.2 g/dl (32.0-36.5); MEAN CORPUSCULAR VOLUME 93.9 fl (80.0-96.0); MONO # 0.5 10^3/uL (0.0-0.8); MONO % 4.9 % (2.0-8.0); NEUTROPHILS # 7.3 10^3/uL (1.5-8.5); NEUTROPHILS % 77.1 % (36.0-66.0); PLATELET COUNT, AUTOMATED 246 10^3/uL (150-450); RED BLOOD COUNT 3.62 10^6/uL (4.00-5.40); WHITE BLOOD COUNT 9.5 10^3/uL (4.0-10.0)
[2024-05-19 10:26] VITALS: BP 111/74
[2024-05-19 10:50] LABS: ALBUMIN 2.7 G/DL (3.2-5.2); ALKALINE PHOSPHATASE 65 U/L (35-104); ALT/SGPT 10 U/L (7.0-40); AST/SGOT 9 U/L (<34); BILIRUBIN,DIRECT < 0.1 MG/DL (<0.4); BILIRUBIN,TOTAL 0.3 MG/DL (0.3-1.2); BLOOD UREA NITROGEN 8 MG/DL (9-23); CALCIUM LEVEL 8.6 MG/DL (8.5-10.1); CARBON DIOXIDE LEVEL 26 MMOL/L (20-31); CHLORIDE LEVEL 108 MMOL/L (98-107); CREATININE FOR GFR 0.56 MG/DL (0.55-1.30); GLOMERULAR FILTRATION RATE > 60.0 (>60); GLUCOSE, FASTING 102 MG/DL (60-100); PHOSPHORUS LEVEL 3.6 MG/DL (2.5-4.9); SODIUM LEVEL 136 MMOL/L (136-145); TOTAL PROTEIN 5.7 G/DL (5.7-8.2)
[2024-05-19] MEDS ORDERED: CYCL-707 PO (11:13)
== END 2024-05-19 11:16 | disposition home or self-care (01) ==
LOC: M LDO 07:48
PROVIDERS: ATTEND Advanced Practice Midwife
DX: O26.892 Other specified pregnancy related conditions, second trimester (principal); O99.342 Other mental disorders complicating pregnancy, second trimester; M54.50 Low back pain, unspecified; Z3A.27 27 weeks gestation of pregnancy; F41.9 Anxiety disorder, unspecified; R00.0 Tachycardia, unspecified
CPT/HCPCS: 36415; 59025; 76815; 76817; 80069; 80076; 81001; 82731; 85025; 87086; G0463

== ENCOUNTER → 2024-07-15 | Outpatient (REF) | payer BC ==
[~2024-07-15] MED LIST changes: +ACET-907 PO; +CYCL-707 PO; +METO37.5 PO; +PRENTAB9 PO
== END ==
LOC: M SFHCWAGY 12:41
PROVIDERS: ATTEND Obstetrics & Gynecology
DX: Z36.89 Encounter for other specified antenatal screening (principal); Z3A.36 36 weeks gestation of pregnancy

== ENCOUNTER 2024-08-04 05:43 | Inpatient (IN) | payer BC ==
[2024-08-04] VITALS (8 sets, daily range): BP systolic 105–118; BP diastolic 63–79; O2SAT 97–98
[~2024-08-04] VITALS: Ht 162.6 cm; Wt 83.0 kg
[2024-08-04] MEDS ORDERED: TRANEXAMIC ACID INJection 1,000 MG in NS 100 ML IV PRN (06:00)
[2024-08-04] MEDS ORDERED: OXYTOCIN DRIP 30 UNITS in IV 1 EA IV PRN (06:00)
[2024-08-04] MEDS ORDERED: METHYLERGONOVINE MALEATE 0.2MG/ML 1ML VIAL IM PRN (06:00)
[2024-08-04] MEDS ORDERED: LIDOCAINE 1% MDV 20ML VIAL INFIL PRN (06:00)
[2024-08-04] MEDS ORDERED: OXYTOCIN INJ 10UNITS/ML 1ML VIAL IV PRN (06:00)
[2024-08-04] MEDS ORDERED: LACTATED RINGER'S 1000 ML IV STA (06:00)
[2024-08-04] MEDS: LR 1,000 ML IV SCH ×3 (06:00→07:00)
[2024-08-04] MEDS ORDERED: CARBOPROST TROMETHAMINE 250 MCG/ML AMP IM PRN (06:00)
[2024-08-04 06:24] LABS: HEMATOCRIT 37.8 % (36.0-47.0); HEMOGLOBIN 12.8 g/dl (12.0-15.5); MEAN CORPUSCULAR HEMOGLOBIN 30.4 pg (27.0-33.0); MEAN CORPUSCULAR HGB CONC 33.9 g/dl (32.0-36.5); MEAN CORPUSCULAR VOLUME 89.8 fl (80.0-96.0); PLATELET COUNT, AUTOMATED 275 10^3/uL (150-450); RED BLOOD COUNT 4.21 10^6/uL (4.00-5.40); WHITE BLOOD COUNT 11.7 10^3/uL (4.0-10.0)
[2024-08-04] MEDS: OXYTOCIN INJ 10UNITS/ML 1ML VIAL IM PRN (06:58)
[2024-08-04] MEDS: OXYTOCIN DRIP 30 UNITS in IV 1 EA IV PRN (06:58)
[2024-08-04] MEDS ORDERED: DOCUSATE SODIUM 100MG CAPSULE PO PRN (07:00)
[2024-08-04] MEDS ORDERED: RHOGAM 300MCG (1500IU) INJ IM SCH (07:00)
[2024-08-04] MEDS: OXYTOCIN INJ 10UNITS/ML 1ML VIAL IV ONE (07:00)
[2024-08-04] MEDS ORDERED: METHYLERGONOVINE MALEATE 0.2 MG TAB PO PRN (07:00)
[2024-08-04] MEDS ORDERED: DIBUCAINE 1% OINTMENT 30GM TOP PRN (07:00)
[2024-08-04] MEDS: IBUPROFEN 600MG TAB PO PRN (07:17)
[2024-08-04] MEDS: OXYTOCIN DRIP 30 UNITS in IV 1 EA IV SCH (07:31)
[2024-08-04 07:34] LABS: HEPATITIS C VIRUS ABY INDEX 0.03 INDEX (<0.8)
[2024-08-04] MEDS: ACETAMINOPHEN 500 MG TAB PO PRN (07:49)
[2024-08-04 07:51] LABS: HIV 1&2 SCREEN NEGATIVE (NEGATIVE)
[2024-08-04] MEDS: PRENATAL VITAMINS CHEWABLE TABLET PO SCH (10:36)
[2024-08-04] MEDS: METOPROLOL TART 50 MG TAB PO SCH (10:39)
[2024-08-05 05:56] VITALS: BP 103/68; O2SAT 97
[2024-08-05 06:25] LABS: HEMATOCRIT 32.6 % (36.0-47.0); MEAN CORPUSCULAR HEMOGLOBIN 30.4 pg (27.0-33.0); MEAN CORPUSCULAR HGB CONC 32.8 g/dl (32.0-36.5); MEAN CORPUSCULAR VOLUME 92.6 fl (80.0-96.0); PLATELET COUNT, AUTOMATED 217 10^3/uL (150-450); RED BLOOD COUNT 3.52 10^6/uL (4.00-5.40); WHITE BLOOD COUNT 11.1 10^3/uL (4.0-10.0)
[2024-08-05 06:34] LABS: HEMOGLOBIN 10.7 g/dl (12.0-15.5)
[2024-08-05 08:41] VITALS: BP 113/74
[2024-08-06] MEDS ORDERED: MEASLES,MUMPS,RUBELLA VACCINE INJ (MMR-II) SC.IMMUN ONE (09:00)
== END 2024-08-05 14:40 | disposition home or self-care (01) | DRG 560 ==
LOC: M LDO 05:43 → M LDI 05:56 → M OBS 08:45
PROVIDERS: ADMIT Obstetrics & Gynecology; ATTEND Obstetrics & Gynecology
PROC: 10E0XZZ Delivery of Products of Conception, External Approach (ICD-10-PCS; principal; 2024-08-04)
PROC: 10907ZC Drainage of Amniotic Fluid, Therapeutic from Products of Conception, Via Natural or Artificial Opening (ICD-10-PCS; 2024-08-04)
DX: O62.3 Precipitate labor (principal); Z37.0 Single live birth; Z3A.39 39 weeks gestation of pregnancy; Z79.899 Other long term (current) drug therapy; Z88.8 Allergy status to other drugs, medicaments and biological substances

== ENCOUNTER → 2024-11-24 | Outpatient (REF) | payer BC | LOC: M SFHCPLAZ 12:54 | DX: R11.0 Nausea (principal) ==

== ENCOUNTER → 2024-11-25 | Outpatient (REF) | payer BC | LOC: M LAB REF 12:02 | PROVIDERS: ATTEND Physician Assistant | DX: B34.9 Viral infection, unspecified (principal) ==

== ENCOUNTER 2024-12-15 21:26 | Emergency (ER) | payer BC ==
[~2024-12-15] VITALS: Ht 162.6 cm; Wt 87.1 kg
[2024-12-15 21:39] VITALS: TEMP 99.4
[2024-12-16 00:20] LABS: ALT/SGPT 23 U/L (7.0-40); AST/SGOT 16 U/L (<34); CALCIUM LEVEL 8.7 MG/DL (8.5-10.1); CARBON DIOXIDE LEVEL 26 MMOL/L (20-31); CHLORIDE LEVEL 109 MMOL/L (98-107); CK-MB VALUE MASS < 1.0 NG/ML (<3.6); CREATININE FOR GFR 0.76 MG/DL (0.55-1.30); GLOMERULAR FILTRATION RATE > 90.0 (>60); MAGNESIUM LEVEL 2.0 MG/DL (1.8-2.4); POTASSIUM SERUM 4.0 MMOL/L (3.5-5.1); SODIUM LEVEL 144 MMOL/L (136-145)
[2024-12-16 00:23] LABS: FREE T4 1.12 NG/DL (0.89-1.76)
[2024-12-16 00:24] LABS: CPK CREATINE PHOSPHOKINASE 40 U/L (34-145)
[2024-12-16 00:34] LABS: BASO # 0.0 10^3/uL (0.0-0.2); BASO % 0.5 % (0.0-1.0); EOS # 0.2 10^3/uL (0.0-0.5); EOS % 2.6 % (0.0-3.0); LYMPH # 1.5 10^3/uL (1.5-5.0); LYMPH % 18.3 % (24.0-44.0); MONO # 0.6 10^3/uL (0.0-0.8); MONO % 6.7 % (2.0-8.0); NEUTROPHILS # 5.9 10^3/uL (1.5-8.5); NEUTROPHILS % 71.5 % (36.0-66.0); PLATELET COUNT, AUTOMATED 301 10^3/uL (150-450)
[2024-12-16 02:00] VITALS: BP 109/66; O2SAT 99
== END 2024-12-16 02:13 | disposition home or self-care (01) ==
LOC: M ED 23:43
DX: R00.0 Tachycardia, unspecified (principal); Z88.8 Allergy status to other drugs, medicaments and biological substances; Z79.810 Long term (current) use of selective estrogen receptor modulators (SERMs); Z79.899 Other long term (current) drug therapy

== ENCOUNTER → 2024-12-22 | Outpatient (REF) | payer BC ==
[2024-12-22 18:37] LABS: CALCIUM LEVEL 8.7 MG/DL (8.5-10.1); CARBON DIOXIDE LEVEL 27 MMOL/L (20-31); CHLORIDE LEVEL 108 MMOL/L (98-107); CREATININE FOR GFR 0.76 MG/DL (0.55-1.30); GLOMERULAR FILTRATION RATE > 90.0 (>60); MAGNESIUM LEVEL 2.0 MG/DL (1.8-2.4); POTASSIUM SERUM 4.2 MMOL/L (3.5-5.1); SODIUM LEVEL 144 MMOL/L (136-145)
[2024-12-22 18:41] LABS: FREE T4 0.99 NG/DL (0.89-1.76)
[2024-12-22 18:46] LABS: THYROID PEROXIDASE ANTIBODY 93 U/ML (<60.0)
== END ==
LOC: M SFHCADAM 13:42
PROVIDERS: ATTEND Physician Assistant
DX: R79.89 Other specified abnormal findings of blood chemistry (principal); R00.0 Tachycardia, unspecified

== ENCOUNTER → 2025-01-12 | Outpatient (REF) | payer BC ==
[~2025-01-12] MED LIST changes: -IBUP-1022 PO
== END ==
LOC: M PLALAB 14:41
PROVIDERS: ATTEND Advanced Practice Midwife
DX: Z12.4 Encounter for screening for malignant neoplasm of cervix (principal)

== ENCOUNTER → 2025-01-12 | Outpatient (REF) | payer BC | LOC: M SFHCWAGY 17:20 | PROVIDERS: ATTEND Advanced Practice Midwife | DX: Z12.4 Encounter for screening for malignant neoplasm of cervix (principal) ==

== ENCOUNTER → 2025-01-24 | Outpatient (REF) | payer BC ==
[2025-01-24 18:49] LABS: FREE T4 1.12 NG/DL (0.89-1.76)
== END ==
LOC: M SFHCADAM 14:08
PROVIDERS: ATTEND Family Medicine
DX: R76.8 Other specified abnormal immunological findings in serum (principal)

== ENCOUNTER → 2025-05-09 | Outpatient (REF) | payer BC | LOC: M LAB REF 11:45 | PROVIDERS: ATTEND Physician Assistant Medical | DX: B34.9 Viral infection, unspecified (principal); J02.9 Acute pharyngitis, unspecified ==